=== PATIENT | female | born 1985 | race Caucasian/White ===

== ENCOUNTER → 2016-03-31 | Outpatient (CLI) | payer BC ==
--- OUTSIDE RECORDS SUMMARY | 2016-03-31 13:52 | XMS REPORT | Continuity of Care Document ---
Author Author Interface Organization Interface Address Unknown Phone Unavailable Problems Problem Status Onset Date Classification Date Reported Comments Source Medications Medication Details Route Status Patient Instructions Ordering Provider Order Date Source Allergies, Adverse Reactions, Alerts Substance Category Reaction Severity Reaction type Status Date Reported Comments Source Immunizations Immunization Date Given Site Status Last Updated Comments Source Results Order Name Results Value Reference Range Date Interpretation Comments Source Vital Signs Vital Sign Value Date Comments Source Encounters Location Location Details Encounter Type Encounter Number Reason For Visit Attending Provider ADM Date DC Date Status Source Procedures Procedure Code Date Perfomer Comments Source
--- NOTE | 2016-03-31 14:22 | Diagnostic Imaging Report ---
EXAMINATION: Three views of the right shoulder. INDICATION: Fall. FINDINGS: There is no fracture, dislocation or radiopaque foreign body. The glenohumeral and the acromioclavicular joints appear unremarkable. IMPRESSION: Unremarkable exam. Dictated by: Dictated on workstation # [id number]
== END ==
LOC: RAD 13:46
PROVIDERS: ATTEND Internal Medicine
DX: M25.511 Pain in right shoulder (principal)
CPT/HCPCS: 73030

== ENCOUNTER → 2016-04-13 | Outpatient (CLI) | payer BC ==
--- NOTE | 2016-04-13 10:45 | Diagnostic Imaging Report ---
PROCEDURE: MRI right joint upper extremity without contrast. TECHNIQUE: Multiplanar, multisequence non contrast-enhanced MRI of the right upper extremity was accomplished. INDICATION: Right shoulder pain. Fall. FINDINGS: There is no os acromiale or Hill-Sachs deformity. No significant marrow signal abnormality. The long head biceps tendon is within its groove. The subscapular tendon appears normal. There is a focal amount of small fluid collection within the subdeltoid subacromial bursa. There is a bursal side mild focal low grade partial tear involving the supraspinatus and adjacent infraspinatus tendon insertion. No high-grade tear or retracted tear. The acromioclavicular joint demonstrates no significant arthritic changes or osteophytes. The muscles around the shoulder demonstrate normal bulk and signal. The glenoid labrum appears grossly unremarkable. IMPRESSION: Low-grade focal bursal side partial tear involving the supraspinatus and infraspinatus tendon insertion. Dictated by: Dictated on workstation # [id number]
== END ==
LOC: RAD 09:35
PROVIDERS: ATTEND Nurse Practitioner Family
DX: M25.511 Pain in right shoulder (principal); M54.10 Radiculopathy, site unspecified
CPT/HCPCS: 73221

== ENCOUNTER 2016-05-04 19:17 | Emergency (ER) | payer BC ==
[~2016-05-04] VITALS: Ht 165.1 cm; Wt 63.5 kg
[2016-05-04 19:55] LABS: BASOPHILS % (AUTO) 1 % (0-10); EOSINOPHILS # (AUTO) 0.1 10^3/uL (0.0-0.3); EOSINOPHILS % (AUTO) 1 % (0-10); LYMPHOCYTES # (AUTO) 1.6 X 10^3 (1.0-4.0); LYMPHOCYTES % (AUTO) 23 % (12-44); MEAN CORPUSCULAR HEMOGLOBIN 31 PG (25-34); MEAN CORPUSCULAR HGB CONC 34 G/DL (32-36); MEAN CORPUSCULAR VOLUME 90 FL (80-99); MEAN PLATELET VOLUME 9.5 FL (7.4-10.4); MONOCYTES # (AUTO) 0.7 X 10^3 (0.0-1.0); MONOCYTES % (AUTO) 11 % (0-12); NEUTROPHILS # (AUTO) 4.3 X 10^3 (1.8-7.8); NEUTROPHILS % (AUTO) 64 % (42-75); PLATELET COUNT 232 10^3/uL (130-400); RED CELL DISTRIBUTION WIDTH 12.8 % (10.0-14.5); WHITE BLOOD COUNT 6.7 10^3/uL (4.3-11.0)
[2016-05-04 20:04] LABS: INR 0.9 (0.8-1.4); PROTHROMBIN TIME PATIENT 11.4 SEC (12.2-14.7)
[2016-05-04 20:20] LABS: ALANINE AMINOTRANSFERASE 25 U/L (0-55); ALBUMIN 4.5 G/DL (3.2-4.5); ANION GAP 13 MMOL/L (5-14); ASPARTATE AMINO TRANSFERASE 12 U/L (5-34); BILIRUBIN,TOTAL 0.4 MG/DL (0.1-1.0); BLOOD UREA NITROGEN 10 MG/DL (7-18); BUN/CREATININE RATIO 14; CALCIUM 9.8 MG/DL (8.5-10.1); CARBON DIOXIDE 25 MMOL/L (21-32); CHLORIDE 100 MMOL/L (98-107); GFR ESTIMATED > 60; GLUCOSE 84 MG/DL (70-105); MAGNESIUM 2.2 MG/DL (1.8-2.4); POTASSIUM 3.7 MMOL/L (3.6-5.0); SODIUM 138 MMOL/L (135-145); TOTAL PROTEIN 7.5 G/DL (6.4-8.2)
[2016-05-04 20:32] LABS: TROPONIN I < 0.30 NG/ML (<0.30)
--- NOTE | 2016-05-04 20:35 | Diagnostic Imaging Report ---
EXAM: CHEST 1 VIEW, AP/PA ONLY. INDICATION: Heart palpitations. Recent PICC line removed. COMPARISON: Chest radiograph 04/30/2016. FINDINGS: Normal heart size and pulmonary vascularity. No focal pulmonary opacity, pleural effusion, or pneumothorax. Left PICC tip in mid SVC, similar to the prior exam. Osseous structures are unremarkable. IMPRESSION: 1. No acute cardiopulmonary findings. 2. Left PICC with the tip in the mid SVC. Dictated by: Dictated on workstation # [id number]
[2016-05-04] MEDS ORDERED: NS 100 ML (IVPB) BAG IV ONE (20:45)
[2016-05-04] MEDS ORDERED: IOHEXOL 350 MG/ML 150 ML (OMNIPAQUE 350) VIAL IV ONE (20:45)
--- NOTE | 2016-05-04 21:08 | Diagnostic Imaging Report ---
PROCEDURE: CT angiography of the chest with contrast. TECHNIQUE: Multiple contiguous axial images were obtained through the chest after uneventful bolus administration of intravenous contrast. Reconstructed CTA MIP acquisitions were also performed. INDICATION: Heart palpitations. COMPARISON: Chest radiograph 05/04/2016. FINDINGS: No pulmonary artery filling defects. No aneurysm or dissection involving the thoracic aorta or its major branches in the chest. No mediastinal or hilar lymphadenopathy. No pleural or pericardial effusion. The lungs are clear. Bilateral breast prostheses. Osseous structures are unremarkable. The visualized upper abdominal contents are unremarkable. IMPRESSION: No pulmonary emboli. Negative CTA of the chest. Dictated by: Dictated on workstation # [id number]
--- NOTE | 2016-05-04 21:22 | ED Cardiac General ---
History of Present Illness General Chief Complaint: Cardiac/General Problems Stated Complaint: POST PICC PLACEMENT/DRAINAGE/HEART PALPITATIONS Nursing Triage Note: PT TO ED 7 W/ FAMILY FOR C/O PALPITATIONS ONSET TODAY WHILE AT REST. REPORTS RECENTLY HAD A PICC LINE PLACED ET HAS NOTED YELLOW DRAINAGE TO SITE BUT NO OTHER C/O SINCE. DENIES CP, SOA AT THIS TIME. Source: patient History of Present Illness Time seen by provider: 19:30 Initial Comments PT ARRIVES VIA POV FROM HOME STATES SHE HAS HAD PALPITATIONS SINCE 1629 TODAY--BEGAN WHILE SITTING, AND CONTINUES HEART JUST FEELS LIKE IT IS BEATING HARD/IS AWARE OF HEART BEAT. DOES NOT FEEL LIKE IT IS SKIPPING OR BEATING FAST. NO CHEST PAIN NO SHORTNESS OF BREATH NO DIZZINESS NO SWEATS NO SWELLING IN LEGS/ FEET OR PAIN IN CALVES NO HISTORY OF SIMILAR PT HAD PICC LINE PLACED IN LEFT UPPER ARM 1 WEEK AGO--HAS BEEN RECEIVING DAILY ROCEPHIN SINCE THEN, FOR LYME DISEASE SITE BLED THE FIRST NIGHT AND DRESSING CHANGED THE NEXT DAY. YESTERDAY HAD SOME CLEAR DRAINAGE FROM AREA, BUT NO REDNESS, SWELLING OR PAIN TO AREA HAS HAD SUBJECTIVE LOW GRADE FEVERS OFF AND ON X 1 WEEK, BUT NOT TODAY PCP: JW PARKER/DR. ALVARADO'S OFFICE Allergies and Home Medications Allergies Coded Allergies: No Known Drug Allergies (Unverified , 08/30/14) Review of Systems Constitutional: no symptoms reported EENTM: No Symptoms Reported Respiratory: No Symptoms Reported Cardiovascular: See HPIDenies Chest Pain, Denies Edema, Denies Irregular Heart Rate, Denies Lightheadedness, PalpitationsDenies Syncope Gastrointestinal: No Symptoms ReportedDenies Nausea, Denies Vomiting Genitourinary: No Symptoms Reported Musculoskeletal: no symptoms reported Skin: no symptoms reported Psychiatric/Neurological: No Symptoms Reported Endocrine: No Symptoms Reported Hematologic/Lymphatic: No Symptoms Reported Past Pawiesb-Frrtsg-Qjlptn Hx Patient Social History Alcohol Use: Denies Use Recreational Drug Use: No Smoking Status: Never a Smoker Recent Foreign Travel: No Contact w/Someone Who Travel: No Recent Infectious Disease Expo: No Recent Hopitalizations: No Immunizations Up To Date Date of Pneumonia Vaccine: Mar 01, 2013 Surgeries HX Surgeries: Yes (PICC LINE PLACEMENT) Respiratory Hx Respiratory Disorders: No Cardiovascular Hx Cardiac Disorders: No Neurological Hx Neurological Disorders: No Reproductive System Hx Reproductive Disorders: No Genitourinary Hx Genitourinary Disorders: No Gastrointestinal Hx Gastrointestinal Disorders: No Musculoskeletal Hx Musculoskeletal Disorders: No Endocrine Hx Endocrine Disorders: No HEENT HX ENT Disorders: No Cancer Hx Cancer: No Psychosocial Hx Psychiatric Problems: No Blood Transfusions Hx Blood Disorders: Yes (LYME DZ) Physical Exam Vital Signs Vital Sign - Last 12Hours 05/04/16 19:19 Temp 99.8 Pulse 98 Resp 20 B/P 148/99 Pulse Ox 100 O2 Delivery Room Air Capillary Refill : Less Than 3 Seconds General Appearance: No Apparent Distress WD/WN Anxious HEENT: PERRL/EOMI Neck: Full Range of Motion Normal Inspection Non Tender SuppleNo Carotid Bruit , No JVD Respiratory: Chest Non Tender Normal Breath Sounds No Accessory Muscle Use No Respiratory Distress Cardiovascular: Regular Rate, Rhythm No Edema No Gallop No JVD No Murmur Normal Peripheral Pulses Gastrointestinal: Normal Bowel Sounds No Organomegaly No Pulsatile Mass Non Tender Soft Extremity: Normal Capillary Refill Normal Inspection Normal Range of Motion Non Tender No Calf Tenderness No Pedal Edema Neurologic/Psychiatric: Alert Oriented x3 No 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 SCANT AMOUNT OF DRIED SEROUS DRAINAGE ON DRESSING, BUT DRESSING IS INTACT. ) Progress/Results/Core Measures Results/Orders Lab Results Laboratory Tests Test 05/04/16 19:46 Range/Units Activated Partial Thromboplast Time 27 24-35 SEC Alanine Aminotransferase (ALT/SGPT) 25 0-55 U/L Albumin 4.5 3.2-4.5 G/DL Alkaline Phosphatase 46 40-136 U/L Anion Gap 13 5-14 MMOL/L Aspartate Amino Transf (AST/SGOT) 12 5-34 U/L BUN/Creatinine Ratio 14 Basophils # (Auto) 0.0 0.0-0.1 10^3/uL Basophils (%) (Auto) 1 0-10 % Blood Urea Nitrogen 10 7-18 MG/DL Calcium Level 9.8 8.5-10.1 MG/DL Carbon Dioxide Level 25 21-32 MMOL/L Chloride Level 100 98-107 MMOL/L Creatinine 0.70 0.60-1.30 MG/DL Eosinophils # (Auto) 0.1 0.0-0.3 10^3/uL Eosinophils (%) (Auto) 1 0-10 % Estimat Glomerular Filtration Rate > 60 Free Thyroxine 0.87 0.70-1.48 NG/DL Glucose Level 84 70-105 MG/DL Hematocrit 39 35-52 % Hemoglobin 13.3 11.5-16.0 G/DL INR Comment 0.9 0.8-1.4 Lactic Acid Level 0.38 L 0.50-2.00 MMOL/L Lymphocytes # (Auto) 1.6 1.0-4.0 X 10^3 Lymphocytes (%) (Auto) 23 12-44 % Magnesium Level 2.2 1.8-2.4 MG/DL Mean Corpuscular Hemoglobin 31 25-34 PG Mean Corpuscular Hemoglobin Concent 34 32-36 G/DL Mean Corpuscular Volume 90 80-99 FL Mean Platelet Volume 9.5 7.4-10.4 FL Monocytes # (Auto) 0.7 0.0-1.0 X 10^3 Monocytes (%) (Auto) 11 0-12 % Neutrophils # (Auto) 4.3 1.8-7.8 X 10^3 Neutrophils (%) (Auto) 64 42-75 % Platelet Count 232 130-400 10^3/uL Potassium Level 3.7 3.6-5.0 MMOL/L Prothrombin Time 11.4 L 12.2-14.7 SEC Red Blood Count 4.30 L 4.35-5.85 10^6/uL Red Cell Distribution Width 12.8 10.0-14.5 % Serum Test, Qualitative NEGATIVE NEGATIVE Sodium Level 138 135-145 MMOL/L TSH Mammoth Testing 0.28 L 0.35-4.94 UIU/ML Total Bilirubin 0.4 0.1-1.0 MG/DL Total Protein 7.5 6.4-8.2 G/DL Troponin I < 0.30 <0.30 NG/ML White Blood Count 6.7 4.3-11.0 10^3/uL My Orders Orders-BANG RASMUSSEN DO Saline Lock/Iv-Start (05/04/16 19:28) Ekg Tracing (05/04/16 19:28) Monitor-Rhythm Ecg Trace Only (05/04/16 19:28) Cbc With Automated Diff (05/04/16 19:28) Comprehensive Metabolic Panel (05/04/16 19:28) Magnesium (05/04/16 19:28) Protime With Inr (05/04/16 19:28) Partial Thromboplastin Time (05/04/16 19:28) Thyroid Analyzer (05/04/16 19:28) Troponin I (05/04/16 19:28) Chest 1 View, Ap/Pa Only (05/04/16 19:28) Hcg,Qualitative Serum (05/04/16 19:29) Lactic Acid Analyzer (05/04/16 19:38) Blood Culture (05/04/16 19:38) Free T4 (Free Thyroxine) (05/04/16 19:46) Ct Angio Chest W (05/04/16 20:37) Iohexol Injection (Omnipaque 350 Mg/Ml 1 (05/04/16 20:45) Ns (Ivpb) (Sodium Chloride 0.9% Ivpb Bag (05/04/16 20:45) Medications Given in ED Current Medications Medications Dose Ordered Sig/Moi Route Start Time Stop Time Status Last Admin Dose Admin Iohexol 150 ml ONCE ONCE IV 05/04/16 20:45 05/04/16 21:21 DC 05/04/16 20:46 125 ML Sodium Chloride 100 ml ONCE ONCE IV 05/04/16 20:45 05/04/16 21:21 DC 05/04/16 20:46 80 ML Vital Signs/I&O Vital Sign - Last 12Hours 05/04/16 19:19 Temp 99.8 Pulse 98 Resp 20 B/P 148/99 Pulse Ox 100 O2 Delivery Room Air Blood Pressure Mean: 115 Progress Note : Progress Note UNEVENTFUL ER STAY. STILL HAS SENSATION OF HEART BEATING HARD, BUT NOT IRREGULAR OR FAST. PT REMAINED IN NSR THROUGHOUT ER STAY, WITHOUT ECTOPY. ECG Initial ECG Impression Time: 19:25 Initial ECG Rate: 91 Initial ECG Rhythm: Normal Sinus Initial ECG Impression: Normal Initial ECG Comparisson: No Previous ECG Available Diagnostic Imaging Comments CT ANGIO CHEST--NO P.E., NO ACUTE PROCESS--PER RADIOLOGIST REPORT @ 2121 Reviewed: Reviewed by Me Departure Impression Impression: Primary Impression: SUBJECTIVE PALPITATIONS Additional Impression: LOW TSH ON THYROID SUPPLEMENT Disposition: 01 HOME, SELF-CARE Condition: Stable Departure-Patient Inst. Referrals: VIJAY ALVARADO DO (PCP) Primary Care Physician MAXIMILIAN ALVARADO, DNP (Family) Primary Care Physician Patient Instructions: Palpitations (DC), Thyroid Stimulating Hormone Test Add. Discharge Instructions: HOME, REST CONTINUE YOUR MEDICATIONS PRESCRIBED FOLLOW UP WITH DR. ALVARADO'S OFFICE THIS WEEK FOR FURTHER CARE RETURN TO ER IF WORSE All discharge instructions reviewed with patient and/or family. Voiced understanding. BANG RASMUSSEN DO May 04, 2016 21:22
[2016-05-04 21:30] VITALS: BP 130/94
== END 2016-05-04 21:30 | disposition home or self-care (01) ==
LOC: EDUNIT# 19:17 → ER 19:19
DX: R00.2 Palpitations (principal); A69.20 Lyme disease, unspecified; R94.6 Abnormal results of thyroid function studies
CPT/HCPCS: 36415; 71010; 71275; 80053; 83605; 83735; 84439; 84443; 84484; 84703; 85025; 85610; 85730; 87040; 93005

== ENCOUNTER → 2016-06-02 | Outpatient (CLI) | payer BC ==
--- NOTE | 2016-06-02 13:28 | Diagnostic Imaging Report ---
PROCEDURE: MR imaging cervical spine without contrast. TECHNIQUE: Multiplanar, multisequence MR imaging of the cervical spine was performed without contrast. INDICATION: Neck pain, right arm pain. There are no previous studies available for comparison. FINDINGS: The reconstructed parasagittal images show slight reversal of the normal lordosis of the cervical spine. This may be secondary to muscle spasm and/or positioning. The intervertebral spaces are fairly well maintained although there is desiccation of the disc at every level. Furthermore at the C5-C6 level, there is a broad-based disc bulge slightly eccentric to the left. The disc indents the ventral aspect of the thecal sac and narrows the AP diameter to approximately 10.3 mm. There does not appear to be any significant neuroforaminal narrowing at this level. The thecal sac is relatively generous and there is no evidence for spinal stenosis or nerve root encroachment at any other level of the cervical spine. There is no abnormal signal arising from the cord or the vertebral bodies to indicate an acute abnormality. There is no sign of a paraspinal mass. The expected carotid and vertebral flow voids are evident bilaterally. IMPRESSION: 1. There is a disc bulge eccentric to the left at C5-C6. There does not appear to be any significant central stenosis at this level and there is no narrowing of the neuroforamen at this level. 2. The remainder of the cervical spine is unremarkable for spinal stenosis or nerve root encroachment. 3. There is no sign of an acute bony abnormality or of a cord lesion. Dictated by: Dictated on workstation # [id number]
== END ==
LOC: RAD 11:24
PROVIDERS: ATTEND Orthopaedic Surgery
DX: M54.12 Radiculopathy, cervical region (principal); M25.511 Pain in right shoulder
CPT/HCPCS: 72141

== ENCOUNTER 2016-06-12 13:08 | Outpatient (RCR) | payer BC ==
--- NOTE | 2016-04-30 16:06 | Diagnostic Imaging Report ---
EXAMINATION: Portable upright radiograph of the chest. INDICATION: PICC line placement. FINDINGS: Left PICC line is placed with the tip at the distal SVC level. The lungs are clear. The heart size is normal. No effusion or pneumothorax. The mediastinum and soha appear unremarkable. IMPRESSION: Left PICC line placed with the tip at the distal SVC level. Dictated by: Dictated on workstation # [id number]
[2016-04-30 16:40] VITALS: BP 131/100
--- NOTE | 2016-05-19 15:34 | Diagnostic Imaging Report ---
Portable upright radiograph of the chest. INDICATION: PICC line placement. FINDINGS: Left PICC line is placed with the tip at the cavoatrial junction. The lungs are clear. The heart size is normal. No effusion or pneumothorax The mediastinum and soha appear unremarkable. IMPRESSION: Unremarkable exam. Dictated by: Dictated on workstation # [id number]
[2016-06-02 10:35] VITALS: BP 124/84
[~2016-06-12] VITALS: Ht 165.1 cm; Wt 49.9 kg
[~2016-06-12 13:08] MED LIST: cefTRIAXone 1 GM/NS 50 ML IVPB IV ONE
[2016-06-12 13:43] VITALS: BP 124/86
== END 2016-07-29 | disposition home or self-care (01) ==
LOC: SDC 13:08
PROVIDERS: ATTEND Internal Medicine
DX: R78.81 Bacteremia (principal)
CPT/HCPCS: 36569; 71010; 76937; 96365; 96366; 99211

== ENCOUNTER 2017-05-06 18:48 | Inpatient (IN) | payer BC ==
[2017-05-06] VITALS (12 sets, daily range): BP systolic 117–149; BP diastolic 72–100
[~2017-05-06] VITALS: Ht 165.1 cm; Wt 79.5 kg
[2017-05-06] MEDS ORDERED: NS IV 1000 ML 1,496.85 ML IV PRN (19:00)
[2017-05-06] MEDS ORDERED: MELATONIN 3 MG TABLET PO PRN (19:00)
[2017-05-06] MEDS ORDERED: ANTACID SUSP 30 ML UDC (MYLANTA) PO PRN (19:00)
[2017-05-06] MEDS ORDERED: MILK OF MAGNESIA 400 MG/5 ML 30 ML UDC PO PRN (19:00)
[2017-05-06] MEDS ORDERED: fentaNYL INJECTION 100 MCG/2 ML AMP IVP PRN ×2 (19:00→20:00)
[2017-05-06] MEDS ORDERED: BENZONATATE 100 MG (TESSALON) CAPSULE PO PRN (19:00)
[2017-05-06] MEDS ORDERED: ONDANSETRON 4 MG/2 ML (SDV) Z0FRAN IV PRN ×2 (19:00→20:00)
--- OUTSIDE RECORDS SUMMARY | 2017-05-06 19:02 | XMS REPORT | Continuity of Care Document ---
Author Author [employer] Organization [facility] Address Unknown Phone Unavailable Care Team Providers Care Ride Attendant Name Role Phone [employer] Unavailable Unavailable Problems Medications Allergies, Adverse Reactions, Alerts Immunizations Results Vital Signs Encounters Procedures Plan of Care Social History Assessment and Plan Family History Advance Directives Functional Status
--- OUTSIDE RECORDS SUMMARY | 2017-05-06 19:02 | XMS REPORT | Clinical Summary ---
Author Author [facility] Organization [facility] Address Unknown Phone Unavailable Care Team Providers Care Lay Out Inspector Name Role Phone Bashir Capellan PA-C Unavailable Unavailable Chino Lopez RD Unavailable Thania Mclean MD Unavailable Source Comments Some departments are not documenting in the electronic medical record. If you do not see the information that you expected, contact Release of Information in the Health Information Management department at [phone] for further assistance in locating additional records.[facility] Allergies No Known Allergies Current Medications Prescription Sig. Disp. Refills Start End Date Status Date progesterone, Take 100 mg by mouth Active micronized(+) daily. (PROMETRIUM) 100 mg capsule PREGNENOLONE MISC Take 50 mg by mouth three Active times daily. Prasterone (DHEA) (DHEA) Take 2 Caps by mouth Active 50 mg cap daily. Copper Gluconate 2 mg cap Take 1 Cap by mouth Active daily. Zinc 50 mg tab Take 1 Tab by mouth Active daily. S-Adenosylmethionine Take 2 Tabs by mouth Active (YANETH-E) 400 mg tab daily. GLUTATHIONE PO Take 250 mg by mouth. 10 Active caps/day CHROMIUM PO Take 1 Cap by mouth Active daily. VIT #91/FE Take 1 Cap by mouth Active FUM/FA/DHA ( + daily. DHA PO) vitamins, B complex tab Take 1 Tab by mouth Active daily. ferrous sulfate 325 mg Take 325 mg by mouth Active (65 mg iron) tablet daily. Cholecalciferol (Vitamin Take 1 Cap by mouth twice Active D3) (VITAMIN D-3) 2,000 daily. unit cap Biotin 10,000 mcg cap Take 1 Cap by mouth Active daily. THYROID (BULK) MISC Take 1 Tab by mouth Active daily. Nonporcine Thyroid 38/9mcg Iodine (Kelp) tab Take 2 Tabs by mouth Active daily. Sea-Iodine 1,000 mcg RESVERATROL PO Take 500 mg by mouth Active three times daily. Digestive Enzymes (ENZYME Take 2 Caps by mouth Active DIGEST) cap three times daily. Enhanced Super Digestive Enzymes B INFANTIS/B ANI/B DRAKE/B Take 2 Tabs by mouth Active BIFID (PROBIOTIC 4X PO) daily. DIINDOLYLMETHANE (BULK) Take 150 mg by mouth Active MISC daily. Fish Oil-[place]-3 Fatty Take 1 Cap by mouth Active Acids (FISH OIL) daily. 360-1,200 mg cpDR COLOSTRUM, BOVINE PO Take 3 g by mouth twice Active daily. Colostrum Plus 1 scoop BID ASCORBATE CALCIUM Take 5 g by mouth three Active (VITAMIN C PO) times daily. Vitamin C Crystals 1 tsp TID nystatin 500,000 unit Take 500,000 Units by Active tablet mouth daily. estradiol(+) Apply 1 Patch to top of Active (VIVELLE-DOT; ESCLIM; skin as directed twice JAZMINE; ESTRADERM; weekly. VIVELLE) 0.1 mg/24 hr patch QUEtiapine (SEROQUEL) 100 Take 100 mg by mouth Active mg tablet three times daily. amphetamine-dextroampheta Take 20 mg by mouth as Active mine XR (ADDERALL XR) 20 Needed mg capsule Selenomethionine 200 mcg Take 1 Tab by mouth twice Active tab daily. other medication Take 1 Dose by mouth Active daily. Serenity other medication Take 1 Dose by mouth four Active times daily. CleanseMore - Magnesium 230 mg plus PROPRIETARY BLEND(CAPE ALOE VERA, RHUBARB ROOT, SLIPPERY ELM BARK, MARSHMALLOW ROOT, TRIPHALA) other medication Take 1 Dose by mouth Active twice daily. Avipaxin - Alpha-Size 50P (Alpha-Glyceryl Phosphoryl Choline), Vocrcp-X-itybwujct hydrochloride, Huperzia augustine herb extract (standardized to 1% Huperzine A) FOLIC ACID PO Take 5 mg by mouth twice Active daily. 5MTHF other medication Take 2 Doses by mouth Active twice daily. Mitochondrial Energy Optimizer other medication Take 2 Doses by mouth Active three times daily. Forskohlii other medication Take 2 Doses by mouth Active twice daily. Immuno Mod-A [employer]s for Health other medication Take 1 Dose by mouth Active twice daily. Viviscal bi-est 50/50 0.5 mg-DHEA Take 0.5 Troches by mouth Active 2.5 mg-pregnenolone 6 daily. Bi-est 5 mg only mg-progesterone 50 mg-testosterone 0.5 mg chrissy other medication Take 1 Dose by mouth Active twice daily. IntestiNew L-glutamine (free form) 835mg N-acetyl D-glucosamine 35mg Gamma oryzanol 20mg Proprietary herbal blend 10mg -cranesbill root (geranium maculatum) -michael root (zingiber officinale) -marigold flower (calendula officinalis) -marshmallow root (althaea officinalis) Testosterone (TESTOPEL) Insert as directed. Active 75 mg pllt Testosterone Pellet other medication Take 2 Doses by mouth Active twice daily. ViraCon - Vital Nutrients other medication Take 2 Doses by mouth Active three times daily. Monolaurin 600mg, Inosine ...7.5mg other medication Take 1 Dose by mouth Active three times daily. Biocidin 400 mg other medication Take 1 Dose by mouth four Active times daily. Silver Hydrosol 1 [id number]=[id number]/QID Melatonin 5 mg cap Take by mouth. Active Phentermine 37.5 mg cap Take by mouth. Active metFORMIN (GLUCOPHAGE) Take 500 mg by mouth Active 500 mg tablet twice daily with meals. clonazePAM (KLONOPIN) 1 Take 1 mg by mouth twice Active mg tablet daily. spironolactone Take 50 mg by mouth Active (ALDACTONE) 50 mg tablet daily. pregabalin (LYRICA) 50 mg Take 50 mg by mouth three Active capsule times daily. Active Problems Problem Noted Date Micromastia 07/10/2015 Lyme disease 05/22/2014 Overview: 06/12 positive titre after a year of fatigue and joint, muscle pain. 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 Insomnia 05/22/2014 Depression 05/22/2014 Hx of tobacco use, presenting hazards to health 05/22/2014 Amenorrhea 05/22/2014 Overview: last menses Oct 2013 Hypothyroid 05/22/2014 Chronic pain 05/22/2014 Social History Tobacco Use Types Packs/Day Years Used Date Former Smoker Sex Assigned at Date Recorded Not on file Last Filed Vital Signs Vital Sign Reading Time Taken Blood Pressure 117/81 07/10/2015 10:15 AM CDT Pulse 118 07/10/2015 10:15 AM CDT Temperature - - Respiratory Rate 18 07/10/2015 10:15 AM CDT Oxygen Saturation - - Inhaled Oxygen - - Concentration Weight 52 kg (114 lb 9.6 oz) 07/10/2015 10:15 AM CDT Height 165.1 cm (5' 5") 07/10/2015 10:15 AM CDT Body Mass Index 19.07 07/10/2015 10:15 AM CDT Plan of Treatment Health Maintenance Due Date Last Done Comments PHYSICAL (COMPREHENSIVE) 1992 EXAM PERTUSSIS VACCINE 1996 HIV SCREENING 2000 TETANUS VACCINE 2002 CERVICAL CANCER SCREENING 2015 INFLUENZA VACCINE 11/29/2017 Results Not on filefrom Last 3 Months
--- OUTSIDE RECORDS SUMMARY | 2017-05-06 19:03 | XMS REPORT | Continuity of Care Document ---
Author Author [facility] Organization [facility] Address Unknown Phone Unavailable Allergies Active Description Code Type Severity Reaction Onset Reported/Identified Relationship to Patient Clinical Status Yes No Known Drug Allergies [id number] Drug Allergy Unknown N/A 08/30/2014 Medications There is no data. Problems Date Dx Coded Attending Type Code Diagnosis Diagnosed By 09/12/2014 MAXIMILIAN ALVARADO ELECTROMEDICAL EQUIPMENT REPAIRER Ot 790.7 10/18/2014 MAXIMILIAN ALVARADO ELECTROMEDICAL EQUIPMENT REPAIRER Ot 790.7 10/31/2014 VIJAY ALVARADO DO Ot 114.9 10/31/2014 VIJAY ALVARADO DO Ot 789.00 10/31/2014 VIJAY ALVARADO DO Ot 793.19 11/08/2014 VIJAY ALVARADO DO Ot 786.09 11/08/2014 VIJAY ALVARADO DO Ot 786.2 11/15/2014 VIJAY ALVARADO DO Ot 114.9 11/15/2014 VIJAY ALVARADO DO Ot 789.00 11/15/2014 VIJAY ALVARADO DO Ot 793.19 11/28/2014 MAXIMILIAN ALVARADOP Ot 790.7 BACTEREMIA 03/08/2015 VIJAY ALVARADO DO Ot 786.09 03/08/2015 VIJAY ALVARADO DO Ot 786.2 03/08/2015 VIJAY ALVARADO DO Ot 114.9 03/08/2015 VIJAY ALVARADO DO Ot 789.00 03/08/2015 VIJAY ALVARADO DO Ot 793.19 03/20/2015 MAXIMILIAN ALVARADO ELECTROMEDICAL EQUIPMENT REPAIRER Ot R91.1 04/18/2015 MAXIMILIAN ALVARADO ELECTROMEDICAL EQUIPMENT REPAIRER Ot A21.9 04/18/2015 MAXIMILIAN ALVARADO ELECTROMEDICAL EQUIPMENT REPAIRER Ot A21.9 04/19/2015 MAXIMILIAN ALVARADO ELECTROMEDICAL EQUIPMENT REPAIRER Ot A21.9 04/20/2015 JENNY, MAXIMILIAN L ELECTROMEDICAL EQUIPMENT REPAIRER Ot A21.9 04/21/2015 JENNY, MAXIMILIAN L ELECTROMEDICAL EQUIPMENT REPAIRER Ot A21.9 04/21/2015 JENNY, MAXIMILIAN L ELECTROMEDICAL EQUIPMENT REPAIRER Ot A21.9 04/22/2015 JENNY, MAXIMILIAN L ELECTROMEDICAL EQUIPMENT REPAIRER Ot A21.9 04/24/2015 JENNY, MAXIMILIAN L ELECTROMEDICAL EQUIPMENT REPAIRER Ot A21.9 04/25/2015 JENNY, MAXIMILIAN L ELECTROMEDICAL EQUIPMENT REPAIRER Ot A21.9 04/26/2015 JENNY, MAXIMILIAN L ELECTROMEDICAL EQUIPMENT REPAIRER Ot A21.9 04/27/2015 JENNY, MAXIMILIAN L ELECTROMEDICAL EQUIPMENT REPAIRER Ot A21.9 04/27/2015 JENNY MAXIMILIAN L ELECTROMEDICAL EQUIPMENT REPAIRER Ot A21.9 04/28/2015 JENNY MAXIMILIAN L ELECTROMEDICAL EQUIPMENT REPAIRER Ot A21.9 04/29/2015 JENNY MAXIMILIAN L ELECTROMEDICAL EQUIPMENT REPAIRER Ot A21.9 05/28/2015 JENNY MAXIMILIAN L ELECTROMEDICAL EQUIPMENT REPAIRER Ot A21.9 06/18/2015 JENNY MAXIMILIAN L ELECTROMEDICAL EQUIPMENT REPAIRER Ot A69.20 LYME DISEASE, UNSPECIFIED 06/18/2015 JNENY MAXIMILIAN L ELECTROMEDICAL EQUIPMENT REPAIRER Ot A69.20 LYME DISEASE, UNSPECIFIED 06/19/2015 JENNY MAXIMILIAN L ELECTROMEDICAL EQUIPMENT REPAIRER Ot A69.20 LYME DISEASE, UNSPECIFIED 06/19/2015 JENNY MAXIMILIAN L ELECTROMEDICAL EQUIPMENT REPAIRER Ot A69.20 LYME DISEASE, UNSPECIFIED 06/20/2015 JENNY MAXIMILIAN L ELECTROMEDICAL EQUIPMENT REPAIRER Ot A69.20 LYME DISEASE, UNSPECIFIED 06/20/2015 JENNY MAXIMILIAN L ELECTROMEDICAL EQUIPMENT REPAIRER Ot A69.20 LYME DISEASE, UNSPECIFIED 06/21/2015 JENNY MAXIMILIAN L ELECTROMEDICAL EQUIPMENT REPAIRER Ot A69.20 LYME DISEASE, UNSPECIFIED 06/21/2015 JENNY MAXIMILIAN L ELECTROMEDICAL EQUIPMENT REPAIRER Ot A69.20 LYME DISEASE, UNSPECIFIED 06/21/2015 JENNY MAXIMILIAN L ELECTROMEDICAL EQUIPMENT REPAIRER Ot A69.20 LYME DISEASE, UNSPECIFIED 06/21/2015 JENNY MAXIMILIAN L ELECTROMEDICAL EQUIPMENT REPAIRER Ot A69.20 LYME DISEASE, UNSPECIFIED 07/03/2015 MAXIMILIAN ALVARADO ELECTROMEDICAL EQUIPMENT REPAIRER Ot H53.9 UNSPECIFIED VISUAL DISTURBANCE 07/03/2015 MAXIMILIAN ALVARADO ELECTROMEDICAL EQUIPMENT REPAIRER Ot R51 HEADACHE 07/15/2015 MAXIMILIAN ALVARADO ELECTROMEDICAL EQUIPMENT REPAIRER Ot A21.9 TULAREMIA, UNSPECIFIED 07/25/2015 MAXIMILIAN ALVARADO ELECTROMEDICAL EQUIPMENT REPAIRER Ot A69.20 LYME DISEASE, UNSPECIFIED 09/15/2015 MAXIMILIAN ALVARADO ELECTROMEDICAL EQUIPMENT REPAIRER Ot A69.20 LYME DISEASE, UNSPECIFIED 09/20/2015 MAXIMILIAN ALVARADO ELECTROMEDICAL EQUIPMENT REPAIRER Ot A02.9 SALMONELLA INFECTION, UNSPECIFIED 10/28/2015 MAXIMILIAN ALVARADO ELECTROMEDICAL EQUIPMENT REPAIRER Ot A02.9 SALMONELLA INFECTION, UNSPECIFIED 11/24/2015 MAXIMILIAN ALVARADO ELECTROMEDICAL EQUIPMENT REPAIRER Ot A02.9 SALMONELLA INFECTION, UNSPECIFIED 11/25/2015 MAXIMILIAN ALVARADO ELECTROMEDICAL EQUIPMENT REPAIRER Ot A02.9 SALMONELLA INFECTION, UNSPECIFIED 11/26/2015 MAXIMILIAN ALVARADO ELECTROMEDICAL EQUIPMENT REPAIRER Ot A02.9 SALMONELLA INFECTION, UNSPECIFIED 03/31/2016 VIJAY ALVARADO DO Ot 786.09 RESPIRATORY ABNORM NEC 03/31/2016 VIJAY ALVARADO DO Ot 786.2 COUGH 03/31/2016 VIJAY ALVARADO DO Ot 114.9 COCCIDIOIDOMYCOSIS NOS 03/31/2016 VIJAY ALVARADO DO Ot 789.00 ABDOMINAL PAIN, UNSPECIFIED SITE 03/31/2016 VIJAY ALVARADO DO Ot 793.19 OTHER NONSPECIFIC ABNORMAL FINDING OF SHELBI 03/31/2016 VIJAY ALVARADO DO Ot Z53.9 PROCEDURE AND TREATMENT NOT CARRIED OUT, 03/31/2016 MAXIMILIAN ALVARADO ELECTROMEDICAL EQUIPMENT REPAIRER Ot R91.1 SOLITARY PULMONARY NODULE 03/31/2016 MAXIMILIAN ALVARADO ELECTROMEDICAL EQUIPMENT REPAIRER Ot H53.9 UNSPECIFIED VISUAL DISTURBANCE 03/31/2016 MAXIMILIAN ALVARADO ELECTROMEDICAL EQUIPMENT REPAIRER Ot R51 HEADACHE 03/31/2016 MAXIMILIAN ALVARADO ELECTROMEDICAL EQUIPMENT REPAIRER Ot A21.9 TULAREMIA, UNSPECIFIED 03/31/2016 MAXIMILIAN ALVARADO ELECTROMEDICAL EQUIPMENT REPAIRER Ot A69.20 LYME DISEASE, UNSPECIFIED 03/31/2016 MAXIMILIAN ALVARADO ELECTROMEDICAL EQUIPMENT REPAIRER Ot A02.9 SALMONELLA INFECTION, UNSPECIFIED 03/31/2016 JENNYMAXIMILIAN ELECTROMEDICAL EQUIPMENT REPAIRER Ot A02.9 SALMONELLA INFECTION, UNSPECIFIED 04/01/2016 VIJAY ALVARADO DO Ot M25.511 PAIN IN RIGHT SHOULDER 04/14/2016 JENNYMAXIMILIAN ELECTROMEDICAL EQUIPMENT REPAIRER Ot M25.511 PAIN IN RIGHT SHOULDER 04/14/2016 JENNY MAXIMILIAN Anjali CATESP Ot M54.10 RADICULOPATHY, SITE UNSPECIFIED 04/15/2016 VIJAY ALVARADO DO Ot M25.511 PAIN IN RIGHT SHOULDER 04/30/2016 JENNY MAXIMILIAN Anjali ELECTROMEDICAL EQUIPMENT REPAIRER Ot M25.511 PAIN IN RIGHT SHOULDER 04/30/2016 MAXIMILIAN ALVARADOP Ot M54.10 RADICULOPATHY, SITE UNSPECIFIED 05/04/2016 BANG RASMUSSEN DO Ot A69.20 LYME DISEASE, UNSPECIFIED 05/04/2016 BANG RASMUSSEN DO Ot R00.2 PALPITATIONS 05/04/2016 BANG RASMUSSEN DO Ot R94.6 ABNORMAL RESULTS OF THYROID FUNCTION MARVIN 06/02/2016 VIJAY ALVARADO DO Ot R78.81 BACTEREMIA 06/03/2016 KEITH QUINTEROS DO Ot M25.511 PAIN IN RIGHT SHOULDER 06/03/2016 KEITH QUINTEROS DO Ot M54.12 RADICULOPATHY, CERVICAL REGION 06/12/2016 VIJAY ALVARADO DO Ot R78.81 BACTEREMIA 06/15/2016 VIJAY ALVARADO DO Ot R78.81 BACTEREMIA 06/19/2016 KEITH QUINTEROS DO Ot M25.511 PAIN IN RIGHT SHOULDER 06/19/2016 KEITH QUINTEROS DO Ot M54.12 RADICULOPATHY, CERVICAL REGION 07/29/2016 VIJAY ALVARADO DO Ot R78.81 BACTEREMIA 07/30/2016 VIJAY ALVARADO DO Ot R78.81 BACTEREMIA Procedures There is no data. Results Test Result Range Complete blood count (CBC) with automated white blood cell (WBC) differential - 05/04/16 19:46 Blood leukocytes automated count (number/volume) 6.7 10*3/uL 4.3-11.0 Blood erythrocytes automated count (number/volume) 4.30 10*6/uL 4.35-5.85 Venous blood hemoglobin measurement (mass/volume) 13.3 g/dL 11.5-16.0 Blood hematocrit (volume fraction) 39 % 35-52 Automated erythrocyte mean corpuscular volume 90 [foz_us] 80-99 Automated erythrocyte mean corpuscular hemoglobin (mass per erythrocyte) 31 pg 25-34 Automated erythrocyte mean corpuscular hemoglobin concentration measurement ( mass/volume) 34 g/dL 32-36 Automated erythrocyte distribution width ratio 12.8 % 10.0-14.5 Automated blood platelet count (count/volume) 232 10*3/uL 130-400 Automated blood platelet mean volume measurement 9.5 [foz_us] 7.4-10.4 Automated blood neutrophils/100 leukocytes 64 % 42-75 Automated blood lymphocytes/100 leukocytes 23 % 12-44 Blood monocytes/100 leukocytes 11 % 0-12 Automated blood eosinophils/100 leukocytes 1 % 0-10 Automated blood basophils/100 leukocytes 1 % 0-10 Blood neutrophils automated count (number/volume) 4.3 10*3 1.8-7.8 Blood lymphocytes automated count (number/volume) 1.6 10*3 1.0-4.0 Blood monocytes automated count (number/volume) 0.7 10*3 0.0-1.0 Automated eosinophil count 0.1 10*3/uL 0.0-0.3 Automated blood basophil count (count/volume) 0.0 10*3/uL 0.0-0.1 Blood lactic acid measurement (moles/volume) - 05/04/16 19:46 Blood lactic acid measurement (moles/volume) 0.38 mmol/L 0.50-2.00 Serum or plasma choriogonadotropin ( test) detection - 05/04/16 19:46 Serum or plasma choriogonadotropin ( test) detection NEGATIVE NEGATIVE PT panel in platelet poor plasma by coagulation assay - 05/04/16 19:46 Prothrombin time (PT) in platelet poor plasma by coagulation assay 11.4 s 12.2-14.7 INR in platelet poor plasma or blood by coagulation assay 0.9 0.8-1.4 Activated partial thromboplastin time (aPTT) in platelet poor plasma bycoagulation assay - 05/04/16 19:46 Activated partial thromboplastin time (aPTT) in platelet poor plasma bycoagulation assay 27 s 24-35 Comprehensive metabolic panel - 05/04/16 19:46 Serum or plasma sodium measurement (moles/volume) 138 mmol/L 135-145 Serum or plasma potassium measurement (moles/volume) 3.7 mmol/L 3.6-5.0 Serum or plasma chloride measurement (moles/volume) 100 mmol/L 98-107 Carbon dioxide 25 mmol/L 21-32 Serum or plasma anion gap determination (moles/volume) 13 mmol/L 5-14 Serum or plasma urea nitrogen measurement (mass/volume) 10 mg/dL 7-18 Serum or plasma creatinine measurement (mass/volume) 0.70 mg/dL 0.60-1.30 Serum or plasma urea nitrogen/creatinine mass ratio 14 NRG Serum or plasma creatinine measurement with calculation of estimated glomerular filtration rate > NRG Serum or plasma glucose measurement (mass/volume) 84 mg/dL 70-105 Serum or plasma calcium measurement (mass/volume) 9.8 mg/dL 8.5-10.1 Serum or plasma total bilirubin measurement (mass/volume) 0.4 mg/dL 0.1-1.0 Serum or plasma alkaline phosphatase measurement (enzymatic activity/volume) 46 U/L 40-136 Serum or plasma aspartate aminotransferase measurement (enzymatic activity/ volume) 12 U/L 5-34 Serum or plasma alanine aminotransferase measurement (enzymatic activity/volume ) 25 U/L 0-55 Serum or plasma protein measurement (mass/volume) 7.5 g/dL 6.4-8.2 Serum or plasma albumin measurement (mass/volume) 4.5 g/dL 3.2-4.5 Magnesium - 05/04/16 19:46 Magnesium 2.2 mg/dL 1.8-2.4 Serum or plasma troponin i.cardiac measurement (mass/volume) - 05/04/16 19:46 Serum or plasma troponin i.cardiac measurement (mass/volume) < ng/ mL <0.30 Serum or plasma thyroxine (T4) free measurement (mass/volume) - 05/04/16 19:46 Serum or plasma thyroxine (T4) free measurement (mass/volume) 0.87 ng/dL 0.70-1.48 Serum or plasma thyrotropin measurement by detection limit <=0.05 miu/l (units/ volume) - 05/04/16 19:46 Serum or plasma thyrotropin measurement by detection limit <=0.05 miu/l (units/ volume) 0.28 u[iU]/mL 0.35-4.94 Bacterial blood culture - 05/04/16 19:46 Bacterial blood culture NG NRG Bacterial blood culture - 05/04/16 20:07 Bacterial blood culture NG NRG Encounters ACCT No. Visit Date/Time Discharge Status Pt. Type Provider Facility Loc./Unit Complaint [id number] 12/16/2016 15:50:00 12/16/2016 23:59:59 CLS Preadmit MAXIMILIAN ALVARADO [facility] RAD ABD PAIN [id number] 07/30/2016 00:16:00 07/30/2016 23:59:59 CLS Preadmit VIJAY ALVARADO DO [facility] SDC BACTEREMIA [id number] 06/12/2016 13:08:00 07/29/2016 00:01:00 DIS Outpatient VIJAY ALVARADO DO [facility] SDC BACTEREMIA [id number] 06/02/2016 11:24:00 06/02/2016 23:59:59 CLS Outpatient KEITH QUINTEROS DO [facility] RAD RIGHT SHOULDER PAIN, RIGHT CERVICAL RADICULOPATHY [id number] 05/04/2016 19:19:00 05/04/2016 21:30:00 DIS Emergency BANG RASMUSSEN DO [facility] ER POST PICC PLACEMENT/ DRAINAGE/HEART PALPITATIONS [id number] 04/13/2016 09:35:00 04/13/2016 23:59:59 CLS Outpatient MAXIMILIAN ALVARADO [facility] RAD RIGHT SHOULDER PAIN W/RADICUOPATHY [id number] 03/31/2016 13:46:00 03/31/2016 23:59:59 CLS Outpatient VIJAY ALVARADO DO [facility] RAD R SHOULDER PAIN [id number] 11/26/2015 00:08:00 11/26/2015 23:59:59 CLS Preadmit MAXIMILIAN ALVARADO [facility] 4TH RCR [id number] 11/25/2015 00:09:00 11/25/2015 23:59:59 CLS Preadmit MAXIMILIAN ALVARADO ELECTROMEDICAL EQUIPMENT REPAIRER [facility] LAB POS E/A SALMONELLA [id number] 09/02/2015 17:50:00 11/25/2015 00:01:00 DIS Outpatient ALVARADO MAXIMILIAN L ELECTROMEDICAL EQUIPMENT REPAIRER [facility] 4TH RCR [id number] 08/30/2015 21:00:00 11/24/2015 00:01:00 DIS Outpatient ALVARADO, MAXIMILIAN L ELECTROMEDICAL EQUIPMENT REPAIRER [facility] LAB POS E/A SALMONELLA [id number] 09/16/2015 00:09:00 09/16/2015 23:59:59 CLS Preadmit ALVARADOCASTILLO GUERREROIA L ELECTROMEDICAL EQUIPMENT REPAIRER [facility] BACTEREMIA,ACUTE B BURGDORFERI [id number] 06/21/2015 06:12:00 09/15/2015 00:01:00 DIS Outpatient ALVARADOCASTILLO GUERREROIA L ELECTROMEDICAL EQUIPMENT REPAIRER [facility] BACTEREMIA,ACUTE B BURGDORFERI [id number] 07/16/2015 00:08:00 07/16/2015 23:59:59 CLS Preadmit ALVARADO, MAXIMILIAN L ELECTROMEDICAL EQUIPMENT REPAIRER [facility] F. TULARENSIS [id number] 04/29/2015 08:56:00 07/15/2015 00:01:00 DIS Outpatient ALVARADOCASTILLO GUERREROIA L ELECTROMEDICAL EQUIPMENT REPAIRER [facility] F. TULARENSIS [id number] 06/20/2015 13:32:00 06/20/2015 23:59:59 CLS Outpatient ALVARADOCASTILLO GUERREROIA L ELECTROMEDICAL EQUIPMENT REPAIRER [facility] RAD SEVERE HEADACHES, VISUAL CHANGES [id number] 04/16/2015 21:56:00 04/16/2015 23:59:59 CLS Outpatient ALVARADOVIJAY GUERRERO DO [facility] LAB NODULES BI [id number] 03/08/2015 13:14:00 03/08/2015 23:59:59 CLS Outpatient ALVARADOCASTILLO GUERREROIA L ELECTROMEDICAL EQUIPMENT REPAIRER [facility] RAD NODULES BILATERALLY,HX PNEUMONIA [id number] 08/31/2014 08:04:00 11/28/2014 00:01:00 DIS [facility] [id number] 10/27/2014 09:48:00 10/27/2014 23:59:59 CLS Outpatient VIJAY ALVARADO DO [facility] RAD COCCOIDOSIS, ABD PAIN , ABD AIR FLUID WAVES [id number] 10/26/2014 17:23:00 10/26/2014 23:59:59 CLS Outpatient VIJAY ALVARADO DO [facility] RAD COUGH,DYSPNEA
[2017-05-06] MEDS ORDERED: ACETAMINOPHEN 325 MG TABLET/CAPLET (TYLENOL) PO PRN (19:15)
[2017-05-06 19:28] LABS: BASOPHILS % (AUTO) 1 % (0-10); EOSINOPHILS % (AUTO) 1 % (0-10); HEMATOCRIT 37 % (35-52); HEMOGLOBIN 12.6 G/DL (11.5-16.0); LYMPHOCYTES # (AUTO) 0.2 X 10^3 (1.0-4.0); LYMPHOCYTES % (AUTO) 11 % (12-44); MEAN CORPUSCULAR HEMOGLOBIN 31 PG (25-34); MEAN CORPUSCULAR HGB CONC 34 G/DL (32-36); MEAN CORPUSCULAR VOLUME 90 FL (80-99); MEAN PLATELET VOLUME 9.3 FL (7.4-10.4); MONOCYTES % (AUTO) 2 % (0-12); NEUTROPHILS # (AUTO) 1.6 X 10^3 (1.8-7.8); NEUTROPHILS % (AUTO) 86 % (42-75); PLATELET COUNT 150 10^3/uL (130-400); RED BLOOD COUNT 4.06 10^6/uL (4.35-5.85); RED CELL DISTRIBUTION WIDTH 13.5 % (10.0-14.5); WHITE BLOOD COUNT 1.9 10^3/uL (4.3-11.0)
[2017-05-06 19:42] LABS: ALANINE AMINOTRANSFERASE 53 U/L (0-55); ALBUMIN 4.2 GM/DL (3.2-4.5); ALKALINE PHOSPHATASE 78 U/L (40-136); BUN/CREATININE RATIO 23; CALCIUM 9.7 MG/DL (8.5-10.1); CARBON DIOXIDE 24 MMOL/L (21-32); CHLORIDE 96 MMOL/L (98-107); CREATININE SERUM 0.62 MG/DL (0.60-1.30); GFR ESTIMATED > 60; GLUCOSE 98 MG/DL (70-105); POTASSIUM 3.6 MMOL/L (3.6-5.0); SODIUM 133 MMOL/L (135-145); TOTAL PROTEIN 7.3 GM/DL (6.4-8.2)
[2017-05-06] MEDS: NS IV 1000 ML 1,000 ML IV SCH (19:49)
--- NOTE | 2017-05-06 19:50 | Diagnostic Imaging Report ---
CLINICAL INDICATION: Patient with fever and left-sided flank pain and back pain. Patient has nausea and vomiting, shortness of air, and headache starting yesterday. EXAM: CT exam of the abdomen and pelvis is performed without IV or oral contrast using stone protocol. Coronal and sagittal reformatted images were created. COMPARISONS: CT scan of the chest, abdomen, and pelvis without contrast dated 10/27/2014. FINDINGS: Visualized lung bases: Unremarkable. Liver: There is interval development of an at least 2.0 cm area of low density involving the left lobe of the liver that involves both sides of the left lobe of the liver in the region of the falciform ligament. This is nonspecific, and does not appear to represent a cyst. This appears pretty well demarcated to represent focal fatty infiltration, but it cannot be completely excluded. The liver is otherwise unremarkable. Gallbladder: Unremarkable. Pancreas: Unremarkable as visualized. Spleen: Unremarkable as visualized. Adrenal glands: Unremarkable. Kidneys/ ureters: Both kidneys have stable lobulated appearance which may be related to scarring predominantly in the upper poles bilaterally. There is stable mild prominence of the bilateral renal pelves with no hydronephrosis. There is minimal fat stranding adjacent to the left kidney and Gerota's fascia region which is nonspecific. There also appears to be mild fat stranding adjacent to the proximal left ureter, mid left ureter region. There are no urinary tract stones. There is no renal mass seen. Aorta: Unremarkable as visualized. Intraabdominal/ retroperitoneal contents: Unremarkable. Intestines: There are colonic diverticula involving the transverse colon with no CT evidence of diverticulitis. Appendix: Unremarkable. Bladder: Unremarkable as visualized. There are no stones seen. Pelvic organs: Unremarkable as visualized. Uterus and adnexal structures are unremarkable. There are multiple phleboliths seen in the pelvis. Extra abdominal/ pelvis regions: Unremarkable. Abdominal wall: Unremarkable. Bones: Unremarkable. IMPRESSION: 1: There is interval development of nonspecific mild fat stranding adjacent to the left kidney and left ureter. There are no urinary tract stones seen. Pyelonephritis should be excluded. Other consideration may include a left ureteral stone which has passed and not evident in the bladder. 2: There is stable lobulated appearance of both kidneys predominantly in the upper poles, which may be related to scarring. 3: There is interval development of a circumscribed amorphous roughly 2 cm low-density area involving the left lobe of the liver near the falciform ligament. This does not have the appearance of a cyst. Focal fatty infiltration may be considered, but other lesion cannot be excluded. Clinical correlation for trauma in this region would also help better evaluate. Nonemergent MRI of the liver with and without contrast would better evaluate to exclude a liver mass. Dictated by: Dictated on workstation # [id number]
[2017-05-06] MEDS ORDERED: PROMETHAZINE INJ 25 MG/ML (PHENERGAN) AMP IVP PRN (20:00)
[2017-05-06] MEDS: cefTRIAXone INJECTION 1,000 MG in NS (IVPB) 100 ML IV SCH (20:24)
--- NOTE | 2017-05-06 20:31 | Diagnostic Imaging Report ---
Clinical indication: Rule out pneumonia. Exam: Chest x-ray PA and lateral views. Comparisons: Chest x-ray dated 05/19/2016. Findings: Lungs/pleura: Lungs are clear. There is no pneumothorax. There is no pleural effusion. Mediastinum: Unremarkable. Pulmonary vasculature: Unremarkable. Heart: Unremarkable. Bones/extrathoracic soft tissue: Unremarkable. Impression: There is no radiographic evidence of acute cardiopulmonary process. Dictated by: Dictated on workstation # [id number]
[2017-05-06] MEDS: morphine INJ 4 MG/ML 1 ML (VIAL/SYRINGE) IVP PRN ×2 (20:35→23:17)
[2017-05-06] MEDS: ACETAMINOPHEN 325 MG TABLET/CAPLET (TYLENOL) PO PRN (23:37)
[2017-05-07] VITALS (12 sets, daily range): BP systolic 89–113; BP diastolic 60–79
[2017-05-07] MEDS: NS IV 1000 ML 1,000 ML IV SCH ×4 (00:20→23:26)
[2017-05-07] MEDS: morphine INJ 4 MG/ML 1 ML (VIAL/SYRINGE) IVP PRN ×5 (02:20→22:20)
[2017-05-07 02:49] LABS: BILIRUBIN,URINE NEGATIVE (NEGATIVE); CLARITY,URINE SLIGHTLY CLOUDY; COLOR,URINE YELLOW; GLUCOSE, URINE (UA) NEGATIVE (NEGATIVE); KETONES,URINE 3+ (NEGATIVE); LEUKOCYTE ESTERASE ,URINE 3+ (NEGATIVE); NITRITE,URINE POSITIVE (NEGATIVE); PH,URINE 6.5 (5-9); PROTEIN,URINE 3+ (NEGATIVE); UROBILINOGEN,URINE NORMAL (NORMAL)
[2017-05-07 03:15] LABS: BACTERIA,URINE LARGE /HPF; RBC,URINE 50-100 /HPF; WBC,URINE 50-100 /HPF
[2017-05-07 03:49] LABS: BASOPHILS % (AUTO) 0 % (0-10); EOSINOPHILS % (AUTO) 0 % (0-10); HEMATOCRIT 33 % (35-52); HEMOGLOBIN 11.3 G/DL (11.5-16.0); LYMPHOCYTES # (AUTO) 0.6 X 10^3 (1.0-4.0); LYMPHOCYTES % (AUTO) 4 % (12-44); MEAN CORPUSCULAR HEMOGLOBIN 31 PG (25-34); MEAN CORPUSCULAR HGB CONC 34 G/DL (32-36); MEAN CORPUSCULAR VOLUME 92 FL (80-99); MEAN PLATELET VOLUME 9.1 FL (7.4-10.4); MONOCYTES # (AUTO) 0.4 X 10^3 (0.0-1.0); MONOCYTES % (AUTO) 3 % (0-12); NEUTROPHILS # (AUTO) 12.5 X 10^3 (1.8-7.8); NEUTROPHILS % (AUTO) 93 % (42-75); PLATELET COUNT 149 10^3/uL (130-400); RED BLOOD COUNT 3.65 10^6/uL (4.35-5.85); RED CELL DISTRIBUTION WIDTH 14.1 % (10.0-14.5); WHITE BLOOD COUNT 13.4 10^3/uL (4.3-11.0)
[2017-05-07 04:05] LABS: BUN/CREATININE RATIO 20; CALCIUM 8.2 MG/DL (8.5-10.1); CARBON DIOXIDE 27 MMOL/L (21-32); CHLORIDE 100 MMOL/L (98-107); CREATININE SERUM 0.64 MG/DL (0.60-1.30); GFR ESTIMATED > 60; GLUCOSE 131 MG/DL (70-105); SODIUM 136 MMOL/L (135-145)
--- NOTE | 2017-05-07 05:04 | Pulmonary Consultation ---
History of Present Illness History of Present Illness Date of Consultation 05/07/17 04:59 Date of Admission Allergies and Home Medications Allergies Coded Allergies: No Known Drug Allergies (Unverified , 08/30/14) Past Yaeahzb-[id number]-Npsvvz Hx Patient Social History Alcohol Use: Rarely Uses Number of Drinks Today: 0 Recreational Drug Use: No Smoking Status: Former Smoker Former Smoker, Quit: Dec 06, 2016 Recent Foreign Travel: No Contact w/Someone Who Travel: No Recent Infectious Disease Expo: No Recent Hopitalizations: No Immunizations Up To Date PED Vaccines UTD: No Date of Pneumonia Vaccine: Mar 01, 2013 Seasonal Allergies Seasonal Allergies: Yes Surgeries History of Surgeries: Yes (PICC LINE PLACEMENT) Respiratory History of Respiratory Disorde: No Cardiovascular History of Cardiac Disorders: No Neurological History of Neurological Disord: No Reproductive System Hx Reproductive Disorders: No Genitourinary History of Genitourinary Disor: No Gastrointestinal History of Gastrointestinal Di: No Musculoskeletal History of Musculoskeletal Dis: No Endocrine History of Endocrine Disorders: Yes (HASHIMODOS) HEENT History of HEENT Disorders: No Cancer History of Cancer: No Psychosocial History of Psychiatric Problem: No Integumentary History of Skin or Integumenta: No Blood Transfusions History of Blood Disorders: Yes (LYME DZ) Family Medical History Family Medial History: GERD G8 SISTER, Onset:Unknown Hypertension 19 FATHER, Onset:Unknown Exam Exam Vital Signs Date Time Temp Pulse Resp B/P (MAP) Pulse Ox O2 Delivery O2 Flow Rate FiO2 05/07/17 04:00 102 99/68 (78) 99 Room Air 05/07/17 04:00 96 Room Air 05/07/17 03:00 104 12 99/63 (75) 96 Room Air 05/07/17 02:00 100 11 98/64 (75) 98 Room Air 05/07/17 01:00 112 12 109/69 (82) 95 Room Air 05/07/17 01:00 112 05/07/17 00:00 96 Room Air 05/07/17 00:00 117 19 112/77 (89) 98 Room Air 05/06/17 23:37 102.0 05/06/17 23:36 102.0 05/06/17 23:00 130 16 124/75 (91) 96 Room Air 05/06/17 22:00 125 19 127/81 (96) 97 Room Air 05/06/17 21:45 129 19 117/84 (95) 98 Room Air 05/06/17 21:31 100.2 05/06/17 21:30 128 124/82 (96) 96 Room Air 05/06/17 21:15 140 118/72 (87) 97 Room Air 05/06/17 21:00 134 117/79 (92) 97 Room Air 05/06/17 20:45 134 23 121/83 (96) 96 Room Air 05/06/17 20:30 136 129/83 (98) 97 Room Air 05/06/17 20:28 103.2 05/06/17 20:15 154 25 136/77 (96) 96 Room Air 05/06/17 20:00 133 13 145/94 (111) 97 Room Air 05/06/17 19:45 133 21 142/100 (114) 94 Room Air 05/06/17 19:39 104.4 130 20 149/93 (111) 96 Room Air 05/06/17 19:37 132 05/06/17 19:05 Room Air I & O 05/07/17 07:00 Intake Total 1250 ml Output Total 900 ml Balance 350 ml Results Lab Laboratory Tests 05/06/17 19:17 05/07/17 03:20 Assessment/Plan Assessment/Plan Sepsis with pylonephritis -Bailey culture -Rocephin -IVF UTI hypokalemia -replace Pt is doing better will transfer to [facility] and continue to monitor. All labs and radiology reviewed 255 PALMA REILLY DO May 07, 2017 05:04
[2017-05-07] MEDS: MAGNESIUM 1 GM/100 ML IVPB 100 ML IV SCH ×6 (05:34→11:37)
[2017-05-07] MEDS ORDERED: MAGNESIUM 1 GM/100 ML IVPB 100 ML IV SCH (06:00)
[2017-05-07] MEDS ORDERED: POTASSIUM CL 10MEQ/50ML IVPB 50 ML IV SCH (06:00)
[2017-05-07] MEDS ORDERED: KCL 20 MEQ TAB (K-DUR) PO SCH (06:00)
[2017-05-07] MEDS ORDERED: INFLUENZA TRIvalent 2017-2018 0.5 ML/45 MCG SYR IM ONE (07:45)
--- NOTE | 2017-05-07 08:12 | Diagnostic Imaging Report ---
EXAMINATION: Chest radiograph, portable AP view. DATE: May 07, 2017 at 0220 hours. INDICATION: 32-year-old female, left flank pain, fever. COMPARISON: May 06, 2017. FINDINGS: Heart size and mediastinal contours are unremarkable. There is no identified pneumothorax. There is no large pleural effusion. There is no focal airspace consolidation. IMPRESSION: No identified acute cardiopulmonary abnormality. Dictated by: Dictated on workstation # [id number]
--- NOTE | 2017-05-07 08:14 | History & Physical-Hospitalist ---
HPI History of Present Illness: HPI/Chief Complaint Pt is a 32yoCF with a PMH of lyme disease, hypothyroidism who presented to the urgent care with CC of back pain. She states her pain started 2 days ago. It was mostly lower left sided and was sharp and severe in nature. It continued to worsen yesterday prompting her to seek evaluation at [facility]. She developed a fever while at [facility] despite 1 30mg dose of Toradol. She was also given 1L of IVF, 12.5mg Phenergan, and 1g of rocephin. Despite this she had persistent nausea and pain and was direct admitted for presumed pyelonephritis. Today she states her pain has improved with morphine and her nausea is improving as well. She still is having intermittent cramping back pain though. She has not history of kidney stones and did not noticed and hematuria or discoloration of urine. She did think he urine was cloudy though. Source: patient Date Seen 05/07/17 Time Seen by Provider: 07:55 Attending Physician Johanny Stewart MD PCP Leeroy Hopson DO Referring Physician Date of Admission May 06, 2017 at 6:57 pm Home Medications & Allergies Home Medications Reviewed patient Home Medication Reconciliation Form Allergies Allergies Coded Allergies No Known Drug Allergies (Unverified08/30/14) Past Csanrfa-Cmexlr-Ppsglh Hx Patient Social History Marrital Status: single Employed/Student: employed Alcohol Use: Rarely Uses Number of Drinks Today: 0 Recreational Drug Use: No Smoking Status: Former Smoker Former Smoker, Quit: Dec 06, 2016 Physical Abuse Screen: No Sexual Abuse: No Recent Foreign Travel: No Contact w/other who traveled: No Recent Hopitalizations: No Recent Infectious Disease Expo: No Immunizations Up To Date Pediatric: No Date of Pneumonia Vaccine: Mar 01, 2013 Seasonal Allergies Seasonal Allergies: Yes Surgeries Yes (PICC LINE PLACEMENT) Breast Respiratory No Cardiovascular No Neurological No Reproductive System Hx Reproductive Disorders: No Genitourinary Yes Kidney Infection, Bladder Infection Gastrointestinal No Musculoskeletal No 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) HEENT History of HEENT Disorders: No Cancer No Psychosocial History of Psychiatric Problem: No Integumentary History of Skin or Integumenta: No Blood Transfusions History of Blood Disorders: Yes (LYME DZ) Family Medical History Significant Family History: Hypertension Family Hx: GERD G8 SISTER, Onset:Unknown Hypertension 19 FATHER, Onset:Unknown Review of Systems Constitutional: see HPI, No diaphoresis, fever EENTM: No blurred vision, No double vision, No nose congestion, No throat pain Respiratory: No cough, No dyspnea on exertion, No short of breath Cardiovascular: No chest pain, No edema, No palpitations Gastrointestinal: abdominal pain, No constipation, No diarrhea, No nausea, No vomiting Genitourinary: No dysuria, No hematuria, No incontinence, other (cloudy urine) LMP: Apr 30, 2017 Musculoskeletal: back pain, No joint pain, No muscle pain Skin: No lesions, No rash Psychiatric/Neurological: Denies Emotional Problems, Denies Headache, Denies Numbness, Denies Tingling Physical Exam Physical Exam Vital Signs Vital Signs - First Documented 05/06/17 05/06/17 05/06/17 19:05 19:37 19:39 Temp 104.4 Pulse 132 Resp 20 B/P (MAP) 149/93 (111) Pulse Ox 96 O2 Delivery Room Air Capillary Refill : General Appearance: No Apparent Distress, WD/WN HEENT: PERRL/EOMI, Moist Mucous Membranes, No Scleral Icterus (L), No Scleral Icterus (R) Neck: Normal Inspection, Non Tender, Supple, No JVD, No Thyromegaly Respiratory: Lungs Clear, No Respiratory Distress Cardiovascular: Regular Rate, Rhythm, No Murmur Gastrointestinal: Normal Bowel Sounds, Non Tender, Soft Back: CVA Tenderness (L), No CVA Tenderness (R), No Vertebral Tenderness Extremity: Normal Capillary Refill, Non Tender, No Calf Tenderness, No Pedal Edema Neurologic/Psychiatric: Alert, Oriented x3, Normal Mood/Affect Skin: Normal Color, Warm/Dry Results Results/Procedures Lab Laboratory Tests 05/06/17 19:17 05/07/17 03:[address] ABD/PELVIS WO(KIDNEY STONE) CLINICAL INDICATION: Patient with fever and left-sided flank pain and back pain. Patient has nausea and vomiting, shortness of air, and headache starting yesterday. EXAM: CT exam of the abdomen and pelvis is performed without IV or oral contrast using stone protocol. Coronal and sagittal reformatted images were created. COMPARISONS: CT scan of the chest, abdomen, and pelvis without contrast dated 10/27/2014. FINDINGS: Visualized lung bases: Unremarkable. Liver: There is interval development of an at least 2.0 cm area of low density involving the left lobe of the liver that involves both sides of the left lobe of the liver in the region of the falciform ligament. This is nonspecific, and does not appear to represent a cyst. This appears pretty well demarcated to represent focal fatty infiltration, but it cannot be completely excluded. The liver is otherwise unremarkable. Gallbladder: Unremarkable. Pancreas: Unremarkable as visualized. Spleen: Unremarkable as visualized. Adrenal glands: Unremarkable. Kidneys/ ureters: Both kidneys have stable lobulated appearance which may be related to scarring predominantly in the upper poles bilaterally. There is stable mild prominence of the bilateral renal pelves with no hydronephrosis. There is minimal fat stranding adjacent to the left kidney and Gerota's fascia region which is nonspecific. There also appears to be mild fat stranding adjacent to the proximal left ureter, mid left ureter region. There are no urinary tract stones. There is no renal mass seen. Aorta: Unremarkable as visualized. Intraabdominal/ retroperitoneal contents: Unremarkable. Intestines: There are colonic diverticula involving the transverse colon with no CT evidence of diverticulitis. Appendix: Unremarkable. Bladder: Unremarkable as visualized. There are no stones seen. Pelvic organs: Unremarkable as visualized. Uterus and adnexal structures are unremarkable. There are multiple phleboliths seen in the pelvis. Extra abdominal/ pelvis regions: Unremarkable. Abdominal wall: Unremarkable. Bones: Unremarkable. IMPRESSION: 1: There is interval development of nonspecific mild fat stranding adjacent to the left kidney and left ureter. There are no urinary tract stones seen. Pyelonephritis should be excluded. Other consideration may include a left ureteral stone which has passed and not evident in the bladder. 2: There is stable lobulated appearance of both kidneys predominantly in the upper poles, which may be related to scarring. 3: There is interval development of a circumscribed amorphous roughly 2 cm low-density area involving the left lobe of the liver near the falciform ligament. This does not have the appearance of a cyst. Focal fatty infiltration may be considered, but other lesion cannot be excluded. Clinical correlation for trauma in this region would also help better evaluate. Nonemergent MRI of the liver with and without contrast would better evaluate to exclude a liver mass. Assessment/Plan Admission Diagnosis Sepsis Admission Status: Inpatient Order (span 2 midnights) Reason for Inpatient Admission: Sepsis necessitating IV abx Diagnosis/Problems Diagnosis/Problems (1) Sepsis Status: Acute Assessment & Plan: UA consistent with UTI Met sepsis criteria with Fever, tachycardia, and leukopenia on admission Patient normally has no BP problems and was receiving IV magnesium so hypotension documented this AM was likely iatrogenic Lactic normal, no need for 30cc/kg bolus Urine and Blood cultures ordered but received after antibiotics given at Urgent Care Continue Rocephin as is improving I called and discussed with [facility] and [facility] who will fax results of cultures when available Qualifiers: Qualified Codes: A41.9 - Sepsis, unspecified organism (2) Bacteremia Status: Acute Assessment & Plan: GNR growing on blood cultures Continue on rocephin Like due to obstructing kidney stone that has now passed (3) Pyelonephritis Assessment & Plan: Not seen on CT but clinically appears to have pyelonephritis (UA consistent with infection, CVA tenderness, sepsis) Continue abx (4) Hypokalemia Assessment & Plan: Replaced per protocol this AM (5) Hypomagnesemia Assessment & Plan: Replaced this AM Will recheck this afternoon (6) Prophylactic measure Assessment & Plan: Lovenox Reg Diet NS @ 125ml/hr Clinical Quality Measures DVT/VTE Risk/Contraindication: Risk Factor Score Per Nursin RFS Level Per Nursing on Admit: 1=Low/No VTE PPX JOHANNY STEWART MD May 07, 2017 08:14
[2017-05-07] MEDS ORDERED: KCL 20 MEQ TAB (K-DUR) PO ONE ×3 (09:00→13:00)
[2017-05-07] MEDS: HYDROcodone/APAP 5 MG/325 MG (LORTAB) TAB PO PRN ×4 (09:15→23:26)
[2017-05-07] MEDS ORDERED: FLUC100T6 PO (09:39)
[2017-05-07] MEDS ORDERED: MULT-35 PO (09:39)
[2017-05-07] MEDS ORDERED: IBUP-30 PO (09:39)
[2017-05-07] MEDS ORDERED: PHEN37.53 PO (09:39)
[2017-05-07] MEDS ORDERED: METF500T8 PO (09:39)
[2017-05-07] MEDS ORDERED: CLON0.5T PO (09:39)
[2017-05-07] MEDS ORDERED: TRIA1TAB3 PO (09:39)
[2017-05-07] MEDS ORDERED: clonazePAM 0.5 MG (KlonoPIN) TAB PO PRN (12:30)
[2017-05-07 17:18] LABS: MAGNESIUM 2.6 MG/DL (1.8-2.4); POTASSIUM 4.1 MMOL/L (3.6-5.0)
[2017-05-07] MEDS: cefTRIAXone INJECTION 1,000 MG in NS (IVPB) 100 ML IV SCH (19:30)
[2017-05-08 00:55] VITALS: BP 106/70
[2017-05-08 03:29] LABS: BASOPHILS % (AUTO) 0 % (0-10); EOSINOPHILS # (AUTO) 0.1 10^3/uL (0.0-0.3); EOSINOPHILS % (AUTO) 1 % (0-10); HEMATOCRIT 33 % (35-52); HEMOGLOBIN 10.7 G/DL (11.5-16.0); LYMPHOCYTES # (AUTO) 0.8 X 10^3 (1.0-4.0); LYMPHOCYTES % (AUTO) 6 % (12-44); MEAN CORPUSCULAR HEMOGLOBIN 31 PG (25-34); MEAN CORPUSCULAR HGB CONC 33 G/DL (32-36); MEAN CORPUSCULAR VOLUME 94 FL (80-99); MEAN PLATELET VOLUME 9.5 FL (7.4-10.4); MONOCYTES # (AUTO) 0.5 X 10^3 (0.0-1.0); MONOCYTES % (AUTO) 3 % (0-12); NEUTROPHILS # (AUTO) 13.3 X 10^3 (1.8-7.8); NEUTROPHILS % (AUTO) 90 % (42-75); PLATELET COUNT 134 10^3/uL (130-400); RED BLOOD COUNT 3.47 10^6/uL (4.35-5.85); RED CELL DISTRIBUTION WIDTH 14.7 % (10.0-14.5); WHITE BLOOD COUNT 14.8 10^3/uL (4.3-11.0)
[2017-05-08] MEDS: NS IV 1000 ML 1,000 ML IV SCH (03:42)
[2017-05-08] MEDS: HYDROcodone/APAP 5 MG/325 MG (LORTAB) TAB PO PRN ×3 (03:42→22:03)
[2017-05-08 03:47] LABS: BUN/CREATININE RATIO 22; CARBON DIOXIDE 23 MMOL/L (21-32); CHLORIDE 108 MMOL/L (98-107); CREATININE SERUM 0.59 MG/DL (0.60-1.30); GFR ESTIMATED > 60; GLUCOSE 92 MG/DL (70-105); MAGNESIUM 2.2 MG/DL (1.8-2.4); PHOSPHORUS 1.6 MG/DL (2.3-4.7); POTASSIUM 4.2 MMOL/L (3.6-5.0); SODIUM 137 MMOL/L (135-145)
[2017-05-08 03:49] LABS: BAND NEUTROPHILS 21 %; LYMPHOCYTES % (MANUAL) 4 %; MONOCYTES % (MANUAL) 1 %; NEUTROPHILS % (MANUAL) 74 %; RBC MORPH NORMAL
[2017-05-08 04:25] VITALS: BP 105/74
[2017-05-08] MEDS ORDERED: MEROPENEM 1,000 MG in NS (IVPB) 100 ML IV SCH (07:45)
[2017-05-08 08:00] VITALS: BP 114/76
[2017-05-08] MEDS ORDERED: SENNA W/DOCUSATE (SENOKOT S) TABLET PO PRN (08:00)
--- NOTE | 2017-05-08 08:01 | Progress Note-Hospitalist ---
Subjective HPI/CC On Admission Date Seen by Provider: May 08, 2017 Time Seen by Provider: 07:45 Pt is a 32yoCF with a PMH of lyme disease, hypothyroidism who presented to the urgent care with CC of back pain. She states her pain started 2 days ago. It was mostly lower left sided and was sharp and severe in nature. It continued to worsen yesterday prompting her to seek evaluation at [facility]. She developed a fever while at [facility] despite 1 30mg dose of Toradol. She was also given 1L of IVF, 12.5mg Phenergan, and 1g of rocephin. Despite this she had persistent nausea and pain and was direct admitted for presumed pyelonephritis. Today she states her pain has improved with morphine and her nausea is improving as well. She still is having intermittent cramping back pain though. She has not history of kidney stones and did not noticed and hematuria or discoloration of urine. She did think he urine was cloudy though. Subjective/Events-last exam Pt reports feeling better. Still having back pain. Last BM Wednesday. Feels a little bloated. No leg swelling but complains of problems with "fluid retention " for which she is on diuretics as an outpatient. Objective Exam Vital Signs Vital Signs Date Time Temp Pulse Resp B/P (MAP) Pulse Ox O2 Delivery O2 Flow Rate FiO2 05/06/17 19:05 Room Air 05/06/17 19:37 132 05/06/17 19:39 104.4 20 149/93 (111) 96 Capillary Refill : General Appearance: No Apparent Distress, WD/WN Respiratory: Lungs Clear, No Respiratory Distress Cardiovascular: Regular Rate, Rhythm, No Murmur Gastrointestinal: Normal Bowel Sounds, Non Tender, Soft Extremity: Non Tender, No Calf Tenderness, No Pedal Edema Neurologic/Psychiatric: Alert, Oriented x3 Skin: Normal Color, Warm/Dry Results/Procedures Lab Laboratory Tests 05/07/17 16:59 05/08/17 03:20 Assessment/Plan Assessment and Plan Assess & Plan/Chief Complaint ESBL e coli bacteremia Diagnosis/Problems Diagnosis/Problems (1) Sepsis Status: Acute Assessment & Plan: UA consistent with UTI Urine and Blood cultures ordered here but received after antibiotics given at Urgent Care I called and discussed with [facility] and 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
--- NOTE | 2017-05-08 08:19 | Diagnostic Imaging Report ---
Indication: Fever Comparison: 05/07/2017 Findings: Upright portable view of the chest is obtained. Heart size is normal. The pulmonary vessels appear unremarkable. There is no pneumothorax, mediastinal widening or pleural fluid. There is infiltrate in the right lower lobe. The left lung is clear. Impression: New right lower lobe pneumonia. Dictated by: Dictated on workstation # [id number]
[2017-05-08] MEDS: MEROPENEM 500 MG in NS (IVPB) 100 ML IV SCH ×4 (08:41→23:29)
[2017-05-08] MEDS: LACTOBACILLUS Acidoph/Bulgar (LACTINEX/FLORANEX) TAB PO SCH ×2 (11:55→18:01)
[2017-05-08 12:00] VITALS: BP 112/74
[2017-05-08] MEDS: IBUPROFEN 600 MG (MOTRIN) TAB PO PRN (13:15)
[2017-05-08 16:50] VITALS: BP 115/77
[2017-05-08] MEDS ORDERED: RT-ALBUTEROL SULF 2.5 MG/3 ML PRE-MIX VIAL INH PRN (18:15)
[2017-05-08 21:30] VITALS: BP 134/89
[2017-05-08] MEDS: ACETAMINOPHEN 325 MG TABLET/CAPLET (TYLENOL) PO PRN (22:05)
[2017-05-09 00:49] VITALS: BP 118/78
[2017-05-09] MEDS: LACTOBACILLUS Acidoph/Bulgar (LACTINEX/FLORANEX) TAB PO SCH ×3 (05:08→17:00)
[2017-05-09] MEDS: MEROPENEM 500 MG in NS (IVPB) 100 ML IV SCH ×3 (05:08→18:16)
[2017-05-09 06:00] LABS: BASOPHILS % (AUTO) 0 % (0-10); EOSINOPHILS # (AUTO) 0.1 10^3/uL (0.0-0.3); EOSINOPHILS % (AUTO) 1 % (0-10); HEMATOCRIT 35 % (35-52); HEMOGLOBIN 11.6 G/DL (11.5-16.0); LYMPHOCYTES # (AUTO) 0.6 X 10^3 (1.0-4.0); LYMPHOCYTES % (AUTO) 5 % (12-44); MEAN CORPUSCULAR HEMOGLOBIN 30 PG (25-34); MEAN CORPUSCULAR HGB CONC 33 G/DL (32-36); MEAN CORPUSCULAR VOLUME 92 FL (80-99); MEAN PLATELET VOLUME 9.9 FL (7.4-10.4); MONOCYTES # (AUTO) 0.9 X 10^3 (0.0-1.0); MONOCYTES % (AUTO) 6 % (0-12); NEUTROPHILS % (AUTO) 88 % (42-75); PLATELET COUNT 178 10^3/uL (130-400); RED BLOOD COUNT 3.82 10^6/uL (4.35-5.85); RED CELL DISTRIBUTION WIDTH 14.2 % (10.0-14.5); WHITE BLOOD COUNT 13.6 10^3/uL (4.3-11.0)
[2017-05-09 06:27] LABS: BUN/CREATININE RATIO 15; CALCIUM 8.8 MG/DL (8.5-10.1); CARBON DIOXIDE 26 MMOL/L (21-32); CHLORIDE 104 MMOL/L (98-107); GFR ESTIMATED > 60; GLUCOSE 102 MG/DL (70-105); MAGNESIUM 1.5 MG/DL (1.8-2.4); POTASSIUM 3.7 MMOL/L (3.6-5.0); SODIUM 138 MMOL/L (135-145)
[2017-05-09 08:00] VITALS: BP 122/52
--- NOTE | 2017-05-09 09:44 | Diagnostic Imaging Report ---
EXAM: CHEST 1 VIEW, AP/PA ONLY INDICATION: Fever. COMPARISON: Chest radiograph 05/08/2017. FINDINGS: Normal heart size and pulmonary vascularity. Persistent airspace consolidation in the right lung base. No pleural effusion or pneumothorax. No acute osseous findings. IMPRESSION: Persistent airspace consolidation in the right lung base. Dictated by: Dictated on workstation # [id number]
--- NOTE | 2017-05-09 11:29 | Progress Note-Hospitalist ---
Subjective HPI/CC On Admission Date Seen by Provider: May 09, 2017 Time Seen by Provider: 11:24 Pt is a 32yoCF with a PMH of lyme disease, hypothyroidism who presented to the urgent care with CC of back pain. She states her pain started 2 days ago. It was mostly lower left sided and was sharp and severe in nature. It continued to worsen yesterday prompting her to seek evaluation at [facility]. She developed a fever while at [facility] despite 1 30mg dose of Toradol. She was also given 1L of IVF, 12.5mg Phenergan, and 1g of rocephin. Despite this she had persistent nausea and pain and was direct admitted for presumed pyelonephritis. Today she states her pain has improved with morphine and her nausea is improving as well. She still is having intermittent cramping back pain though. She has not history of kidney stones and did not noticed and hematuria or discoloration of urine. She did think he urine was cloudy though. Subjective/Events-last exam Pt reports persistent cough with some sputum production. She has tried breathing treatments without improvement. She is eating well, drinking well. No diarrhea. Objective Exam Vital Signs Vital Signs Date Time Temp Pulse Resp B/P (MAP) Pulse Ox O2 Delivery O2 Flow Rate FiO2 05/06/17 19:05 Room Air 05/06/17 19:37 132 05/06/17 19:39 104.4 20 149/93 (111) 96 05/09/17 00:49 2.00 Capillary Refill : General Appearance: No Apparent Distress, WD/WN Respiratory: Lungs Clear, No Respiratory Distress, No Wheezing Cardiovascular: Regular Rate, Rhythm, No Murmur Gastrointestinal: Normal Bowel Sounds, Non Tender, Soft Neurologic/Psychiatric: Alert, Oriented x3, Normal Mood/Affect Skin: Normal Color, Warm/Dry Results/Procedures Lab Laboratory Tests 05/09/17 05:35 Assessment/Plan Assessment and Plan Assess & Plan/Chief Complaint ESBL e coli bacteremia Diagnosis/Problems Diagnosis/Problems (1) Sepsis Status: Acute Assessment & Plan: UA consistent with UTI Urine and Blood cultures ordered here but received after antibiotics given at Urgent Care I called and discussed with [facility] and [facility] who will fax results of cultures when available Urine and blood cultures from here now growing ESBL e coli Continue Merrem Will consult IV team for PICC placement tomorrow Probiotic Leukocytosis trending down, fever curve trending down Qualifiers: Qualified Codes: A41.9 - Sepsis, unspecified organism (2) CAP (community acquired pneumonia) Status: Acute Assessment & Plan: Continue Abx as above Pulm consulted, appreciate recs Qualifiers: Qualified Codes: J18.1 - Lobar pneumonia, unspecified organism (3) Bacteremia Status: Acute Assessment & Plan: ESBL e coli growing on blood cultures Merrem as above Will need nursing home course with IV abx Will repeat blood cultures tomorrow after initiation of Merrem to ensure clearance before PICC placement Like due to obstructing kidney stone that has now passed (4) Pyelonephritis Assessment & Plan: Not seen on CT but clinically appears to have pyelonephritis (UA consistent with infection, CVA tenderness, sepsis) Continue abx (5) Hypokalemia Status: Resolved Assessment & Plan: resolved (6) Hypomagnesemia Status: Acute Assessment & Plan: Will replace (7) Prophylactic measure Assessment & Plan: Lovenox Reg Diet Saline Lock ANTONIO FIERRO MD May 09, 2017 11:29 am
[2017-05-09] MEDS: MAGNESIUM 1 GM/100 ML IVPB 100 ML IV SCH ×2 (11:35→12:35)
[2017-05-09 16:30] VITALS: BP 128/87
[2017-05-09] MEDS: HYDROcodone/APAP 5 MG/325 MG (LORTAB) TAB PO PRN ×2 (18:19→22:21)
[2017-05-09] MEDS: guaiFENesin (MUCINEX) 600 MG TAB PO SCH (19:45)
[2017-05-10] MEDS: ACETAMINOPHEN 325 MG TABLET/CAPLET (TYLENOL) PO PRN (00:05)
[2017-05-10] MEDS: MEROPENEM 500 MG in NS (IVPB) 100 ML IV SCH ×5 (00:05→23:12)
[2017-05-10 00:25] VITALS: BP 120/76
[2017-05-10] MEDS: LACTOBACILLUS Acidoph/Bulgar (LACTINEX/FLORANEX) TAB PO SCH ×3 (05:05→17:10)
[2017-05-10] MEDS: POLYETHYLENE GLYCOL 17 GM (MIRALAX) PACK PO PRN ×2 (05:13→20:22)
[2017-05-10 06:09] LABS: BASOPHILS % (AUTO) 0 % (0-10); EOSINOPHILS # (AUTO) 0.2 10^3/uL (0.0-0.3); EOSINOPHILS % (AUTO) 3 % (0-10); HEMATOCRIT 36 % (35-52); HEMOGLOBIN 12.2 G/DL (11.5-16.0); LYMPHOCYTES % (AUTO) 14 % (12-44); MEAN CORPUSCULAR HEMOGLOBIN 31 PG (25-34); MEAN CORPUSCULAR HGB CONC 34 G/DL (32-36); MEAN CORPUSCULAR VOLUME 90 FL (80-99); MEAN PLATELET VOLUME 9.3 FL (7.4-10.4); MONOCYTES % (AUTO) 14 % (0-12); NEUTROPHILS % (AUTO) 69 % (42-75); PLATELET COUNT 199 10^3/uL (130-400); RED BLOOD COUNT 3.96 10^6/uL (4.35-5.85); RED CELL DISTRIBUTION WIDTH 13.9 % (10.0-14.5); WHITE BLOOD COUNT 7.2 10^3/uL (4.3-11.0)
[2017-05-10 06:26] LABS: BUN/CREATININE RATIO 14; CALCIUM 8.9 MG/DL (8.5-10.1); CARBON DIOXIDE 25 MMOL/L (21-32); CHLORIDE 103 MMOL/L (98-107); CREATININE SERUM 0.63 MG/DL (0.60-1.30); GFR ESTIMATED > 60; GLUCOSE 123 MG/DL (70-105); MAGNESIUM 1.6 MG/DL (1.8-2.4); POTASSIUM 3.3 MMOL/L (3.6-5.0); SODIUM 138 MMOL/L (135-145)
[2017-05-10 08:00] VITALS: BP 122/80
--- NOTE | 2017-05-10 09:10 | Pulmonary Progress Note ---
Subjective Time Seen by Provider: 09:10 Exam Exam Vital Signs Date Time Temp Pulse Resp B/P (MAP) Pulse Ox O2 Delivery O2 Flow Rate FiO2 05/10/17 00:25 99.1 89 18 120/76 (91) 96 Room Air 05/09/17 22:25 Room Air 05/09/17 20:16 Room Air 05/09/17 16:30 99.4 79 18 128/87 (101) 98 Room Air I & O 05/10/17 07:00 Intake Total 4390 ml Output Total 2400 ml Balance 1990 ml General Appearance: No Apparent Distress, WD/WN HEENT: PERRL/EOMI, Moist Mucous Membranes, No Scleral Icterus (L), No Scleral Icterus (R) Neck: Normal Inspection, Non Tender, Supple, No JVD, No Thyromegaly Respiratory: Lungs Clear, No Respiratory Distress, No Wheezing Cardiovascular: Regular Rate, Rhythm, No Murmur Extremity: Non Tender, No Calf Tenderness, No Pedal Edema Neurologic/Psychiatric: Alert, Oriented x3, Normal Mood/Affect Skin: Normal Color, Warm/Dry Results Lab Laboratory Tests 05/09/17 05:35 05/10/17 06:00 Assessment/Plan Assessment/Plan Sepsis with pylonephritis -Bailey culture -Rocephin -IVF PNA -repeat CXR 8wks after discharge -Pt is on Merrem for ESBL + UTI and bacteremia UTI hypokalemia -replace 233 PALMA REILLY DO May 10, 2017 09:10
[2017-05-10] MEDS: guaiFENesin (MUCINEX) 600 MG TAB PO SCH ×2 (09:19→20:22)
[2017-05-10] MEDS: BISACODYL 5 MG (DULCOLAX) TABLET PO PRN ×2 (09:19→20:22)
[2017-05-10] MEDS: HYDROcodone/APAP 5 MG/325 MG (LORTAB) TAB PO PRN ×3 (09:19→23:12)
--- NOTE | 2017-05-10 12:49 | Progress Note-Hospitalist ---
Standard Progress Note Progress Notes/Assess & Plan Date Seen 05/10/17 Time Seen by Provider: 12:46 Diagnosis Sepsis Assess & Plan/Chief Complaint The patient is a 32-year-old white female who was admitted with sepsis. This nilson from a urinary tract infection which has proven to be multi drug resistant Escherichia coli. She also grew Escherichia coli on 2 blood cultures. She is doing much better at this time and is afebrile. She received 2 doses of Rocephin empirically before the sensitivities were available. Meropenem was started on the morning of 05/08. Given the positive blood cultures it is anticipated that she will need to be here at least until Friday 05/12. She has no complaints other than boredom. Physical exam: She is alert and oriented and appears her stated age. Lungs are clear to auscultation. CV is regular without murmur. There is no pain to percussion at the's CVAs bilaterally. Extremities show no pedal edema. Impression: Multi drug resistant Escherichia coli urinary tract infection. 2.septicemia. Plan: Continue meropenem Labs Laboratory Tests 05/09/17 05:35 05/10/17 06:00 SIERRA HOWELL MD May 10, 2017 12:49
[2017-05-10 16:00] VITALS: BP 123/79
[2017-05-10] MEDS: IBUPROFEN 600 MG (MOTRIN) TAB PO PRN (17:10)
[2017-05-11] VITALS: BP 107/66
[2017-05-11] MEDS: MEROPENEM 500 MG in NS (IVPB) 100 ML IV SCH ×3 (05:16→17:13)
[2017-05-11] MEDS: LACTOBACILLUS Acidoph/Bulgar (LACTINEX/FLORANEX) TAB PO SCH ×3 (05:18→17:13)
[2017-05-11] MEDS: IBUPROFEN 600 MG (MOTRIN) TAB PO PRN ×2 (05:19→17:54)
[2017-05-11 06:52] LABS: BASOPHILS % (AUTO) 1 % (0-10); EOSINOPHILS # (AUTO) 0.2 10^3/uL (0.0-0.3); EOSINOPHILS % (AUTO) 3 % (0-10); HEMATOCRIT 37 % (35-52); HEMOGLOBIN 12.4 G/DL (11.5-16.0); LYMPHOCYTES # (AUTO) 1.2 X 10^3 (1.0-4.0); LYMPHOCYTES % (AUTO) 15 % (12-44); MEAN CORPUSCULAR HEMOGLOBIN 31 PG (25-34); MEAN CORPUSCULAR HGB CONC 34 G/DL (32-36); MEAN CORPUSCULAR VOLUME 91 FL (80-99); MEAN PLATELET VOLUME 9.8 FL (7.4-10.4); MONOCYTES # (AUTO) 1.5 X 10^3 (0.0-1.0); MONOCYTES % (AUTO) 20 % (0-12); NEUTROPHILS # (AUTO) 4.8 X 10^3 (1.8-7.8); NEUTROPHILS % (AUTO) 62 % (42-75); PLATELET COUNT 258 10^3/uL (130-400); RED BLOOD COUNT 4.07 10^6/uL (4.35-5.85); RED CELL DISTRIBUTION WIDTH 13.9 % (10.0-14.5); WHITE BLOOD COUNT 7.8 10^3/uL (4.3-11.0)
[2017-05-11 07:11] LABS: BUN/CREATININE RATIO 20; CALCIUM 8.7 MG/DL (8.5-10.1); CARBON DIOXIDE 27 MMOL/L (21-32); CHLORIDE 103 MMOL/L (98-107); CREATININE SERUM 0.59 MG/DL (0.60-1.30); GFR ESTIMATED > 60; GLUCOSE 97 MG/DL (70-105); MAGNESIUM 1.5 MG/DL (1.8-2.4); POTASSIUM 3.2 MMOL/L (3.6-5.0); SODIUM 138 MMOL/L (135-145)
[2017-05-11 08:00] VITALS: BP 120/76
[2017-05-11] MEDS: guaiFENesin (MUCINEX) 600 MG TAB PO SCH ×2 (08:56→21:09)
[2017-05-11] MEDS: HYDROcodone/APAP 5 MG/325 MG (LORTAB) TAB PO PRN (08:57)
[2017-05-11] MEDS: BISACODYL 5 MG (DULCOLAX) TABLET PO PRN (08:57)
--- NOTE | 2017-05-11 15:08 | Progress Note-Hospitalist ---
Standard Progress Note Progress Notes/Assess & Plan Date Seen 05/11/17 Time Seen by Provider: 15:06 Diagnosis Sepsis Assess & Plan/Chief Complaint The patient reports that she is feeling much better. She is beginning to have an appetite and energy return. She is anxious to leave and appears to be on schedule for the plan and discharged tomorrow. Physical exam: She is bright and alert. Lungs are clear to auscultation. CV is regular without murmur. Abdomen is soft without tenderness. Extremities show no pedal edema. Impression: Urinary tract infection with multi drug resistant Escherichia coli. 2.septicemia secondary to number 1. Plan: If no change in condition she will be discharged in the morning on oral antibiotics. Labs Laboratory Tests 05/10/17 06:00 05/11/17 06:03 SIERRA HOWELL MD May 11, 2017 15:08
[2017-05-11 15:55] VITALS: BP 117/83
[2017-05-11 16:00] VITALS: BP 117/83
[2017-05-11] MEDS: POLYETHYLENE GLYCOL 17 GM (MIRALAX) PACK PO PRN (17:13)
[2017-05-12] VITALS: BP 100/56
[2017-05-12] MEDS: MEROPENEM 500 MG in NS (IVPB) 100 ML IV SCH ×2 (00:11→05:14)
[2017-05-12] MEDS: HYDROcodone/APAP 5 MG/325 MG (LORTAB) TAB PO PRN ×2 (00:15→06:16)
[2017-05-12] MEDS: LACTOBACILLUS Acidoph/Bulgar (LACTINEX/FLORANEX) TAB PO SCH ×2 (05:14→11:45)
[2017-05-12 06:22] LABS: BASOPHILS # (AUTO) 0.1 10^3/uL (0.0-0.1); BASOPHILS % (AUTO) 1 % (0-10); EOSINOPHILS # (AUTO) 0.2 10^3/uL (0.0-0.3); EOSINOPHILS % (AUTO) 3 % (0-10); HEMATOCRIT 36 % (35-52); HEMOGLOBIN 12.1 G/DL (11.5-16.0); LYMPHOCYTES # (AUTO) 1.4 X 10^3 (1.0-4.0); LYMPHOCYTES % (AUTO) 23 % (12-44); MEAN CORPUSCULAR HEMOGLOBIN 30 PG (25-34); MEAN CORPUSCULAR HGB CONC 34 G/DL (32-36); MEAN CORPUSCULAR VOLUME 90 FL (80-99); MEAN PLATELET VOLUME 9.6 FL (7.4-10.4); MONOCYTES # (AUTO) 1.3 X 10^3 (0.0-1.0); MONOCYTES % (AUTO) 21 % (0-12); NEUTROPHILS # (AUTO) 3.3 X 10^3 (1.8-7.8); NEUTROPHILS % (AUTO) 53 % (42-75); PLATELET COUNT 325 10^3/uL (130-400); RED CELL DISTRIBUTION WIDTH 13.8 % (10.0-14.5); WHITE BLOOD COUNT 6.3 10^3/uL (4.3-11.0)
[2017-05-12 06:34] LABS: BUN/CREATININE RATIO 20; CALCIUM 8.6 MG/DL (8.5-10.1); CARBON DIOXIDE 25 MMOL/L (21-32); CHLORIDE 103 MMOL/L (98-107); CREATININE SERUM 0.55 MG/DL (0.60-1.30); GFR ESTIMATED > 60; GLUCOSE 91 MG/DL (70-105); MAGNESIUM 1.7 MG/DL (1.8-2.4); POTASSIUM 3.4 MMOL/L (3.6-5.0); SODIUM 140 MMOL/L (135-145)
--- NOTE | 2017-05-12 07:04 | Pulmonary Progress Note ---
Subjective Time Seen by Provider: 09:07 Subjective/Events-last exam pt is doing much better. Exam Exam Vital Signs Date Time Temp Pulse Resp B/P (MAP) Pulse Ox O2 Delivery O2 Flow Rate FiO2 05/12/17 00:16 Room Air 05/12/17 00:00 98.6 99 17 100/56 (71) 93 Room Air 05/11/17 21:00 Room Air 05/11/17 15:55 98.4 78 20 117/83 (94) 98 Room Air 05/11/17 09:00 Room Air 05/11/17 08:40 95 Room Air 05/11/17 08:00 98.9 71 20 120/76 (91) 96 Nasal Cannula 2.00 I & O 05/12/17 07:00 Intake Total 3450 ml Balance 3450 ml General Appearance: No Apparent Distress, WD/WN HEENT: PERRL/EOMI, Moist Mucous Membranes, No Scleral Icterus (L), No Scleral Icterus (R) Neck: Normal Inspection, Non Tender, Supple, No JVD, No Thyromegaly Respiratory: Lungs Clear, No Respiratory Distress, No Wheezing Cardiovascular: Regular Rate, Rhythm, No Murmur Extremity: Non Tender, No Calf Tenderness, No Pedal Edema Neurologic/Psychiatric: Alert, Oriented x3, Normal Mood/Affect Skin: Normal Color, Warm/Dry Results Lab Laboratory Tests 05/11/17 06:03 05/12/17 06:05 Assessment/Plan Assessment/Plan Sepsis with pylonephritis -Merrem PNA -repeat CXR 8wks after discharge UTI hypokalemia -replace Will have RT do ambulatory desat test. prior to discharge. 232 PALMA REILLY DO May 12, 2017 07:04
[2017-05-12 08:00] VITALS: BP 119/74
[2017-05-12] MEDS: guaiFENesin (MUCINEX) 600 MG TAB PO SCH (08:33)
[2017-05-12] MEDS ORDERED: SULF1TAB35 PO (11:35)
[2017-05-12] MEDS ORDERED: POTA10CA43 PO (11:35)
[2017-05-12] MEDS ORDERED: ACHD5005 PO (11:35)
--- NOTE | 2017-05-12 11:37 | Discharge Summary-Hospitalist ---
Diagnosis/Chief Complaint Date of Admission May 06, 2017 at 18:57 Date of Discharge Discharge Date: May 12, 2017 Admission Diagnosis Sepsis Discharge Diagnosis (1) Sepsis Status: Acute Assessment & Plan: UA consistent with UTI Urine and Blood cultures ordered here but received after antibiotics given at Urgent Care I called and discussed with [facility] who will fax results of cultures when available Urine and blood cultures from here now growing ESBL e coli Continue Merrem Will consult IV team for PICC placement tomorrow Probiotic Leukocytosis trending down, fever curve trending down (2) CAP (community acquired pneumonia) Status: Acute Assessment & Plan: Continue Abx as above Pulm consulted, appreciate recs (3) Bacteremia Status: Acute Assessment & Plan: ESBL e coli growing on blood cultures Merrem as above Will need halfway course with IV abx Will repeat blood cultures tomorrow after initiation of Merrem to ensure clearance before PICC placement Like due to obstructing kidney stone that has now passed (4) Pyelonephritis Assessment & Plan: Not seen on CT but clinically appears to have pyelonephritis (UA consistent with infection, CVA tenderness, sepsis) Continue abx (5) Hypokalemia Status: Resolved Assessment & Plan: resolved (6) Hypomagnesemia Status: Acute Assessment & Plan: Will replace (7) Prophylactic measure Assessment & Plan: Lovenox Reg Diet Saline Lock Discharge Summary Discharge Physical Exam Allergies: Coded Allergies: No Known Drug Allergies (Unverified , 08/30/14) Vitals & I&Os Vital Signs Date Time Temp Pulse Resp B/P (MAP) Pulse Ox O2 Delivery O2 Flow Rate FiO2 05/12/17 09:05 0.00 05/12/17 08:40 93 Room Air 05/12/17 08:00 98.0 119/74 (89) 05/12/17 00:00 99 17 General Appearance: Alert, Oriented X3, Cooperative Respiratory: Clear to Auscultation, Normal Air Movement Cardiovascular: Regular Rate Psych/Mental Status: Mental Status NL Hospital Course Hospital course: Patient had a standard but lengthy hospital course. She was placed on IV fluids and treatment for ESBL UTI with sepsis and she improved but fever continued as expected. We held most of her home medications during her hospital stay area potassium supplement was given and will be given at discharge with close follow-up with primary care provider. She was maintained on DVT prophylaxis throughout the hospital course and felt ready for discharge on 05/12/17. Labs (last 24 hrs) Laboratory Tests 05/12/17 06:05: White Blood Count 6.3, Red Blood Count 4.00L, Hemoglobin 12.1, Hematocrit 36, Mean Corpuscular Volume 90, Mean Corpuscular Hemoglobin 30, Mean Corpuscular Hemoglobin Concent 34, Red Cell Distribution Width 13.8, Platelet Count 325, Mean Platelet Volume 9.6, Neutrophils (%) (Auto) 53, Lymphocytes (%) (Auto) 23, Monocytes (%) (Auto) 21H, Eosinophils (%) (Auto) 3, Basophils (%) (Auto) 1, Neutrophils # (Auto) 3.3, Lymphocytes # (Auto) 1.4, Monocytes # (Auto) 1.3H, Eosinophils # (Auto) 0.2, Basophils # (Auto) 0.1, Sodium Level 140, Potassium Level 3.4L, Chloride Level 103, Carbon Dioxide Level 25, Anion Gap 12, Blood Urea Nitrogen 11, Creatinine 0.55L, Estimat Glomerular Filtration Rate > 60, BUN /Creatinine Ratio 20, Glucose Level 91, Calcium Level 8.6, Magnesium Level 1.7L Microbiology 05/06/17 Blood Culture - Preliminary, Resulted Escherichia coli 05/07/17 Influenza Types A,B Antigen (VINITA) - Final, Complete 05/06/17 Urine Culture - Final, Complete Escherichia coli Patient resulted labs reviewed. Pending Labs Laboratory Tests 05/12/17 06:05: White Blood Count 6.3, Red Blood Count 4.00, Hemoglobin 12.1, Hematocrit 36, Mean Corpuscular Volume 90, Mean Corpuscular Hemoglobin 30, Mean Corpuscular Hemoglobin Concent 34, Red Cell Distribution Width 13.8, Platelet Count 325, Mean Platelet Volume 9.6, Neutrophils (%) (Auto) 53, Lymphocytes (%) (Auto) 23, Monocytes (%) (Auto) 21, Eosinophils (%) (Auto) 3, Basophils (%) (Auto) 1, Neutrophils # (Auto) 3.3, Lymphocytes # (Auto) 1.4, Monocytes # (Auto) 1.3, Eosinophils # (Auto) 0.2, Basophils # (Auto) 0.1, Sodium Level 140, Potassium Level 3.4, Chloride Level 103, Carbon Dioxide Level 25, Anion Gap 12, Blood Urea Nitrogen 11, Creatinine 0.55, Estimat Glomerular Filtration Rate > 60, BUN/ Creatinine Ratio 20, Glucose Level 91, Calcium Level 8.6, Magnesium Level 1.7 Discussion & Recommendations Discharge Planning: <30 minutes discharge planning Discharge Home Medications: Active Scripts Active Potassium Chloride 10 Meq Capsule.er 10 Meq PO DAILY Bactrim Ds Tablet (Sulfamethoxazole/Trimethoprim) 1 Each Tablet 1 Each PO BID Hydrocodone/Acetaminophen 5/325mg Tablet (Acetaminophen/Hydrocodone Bitart) 1 Tab Tab 1 Tab PO Q4H PRN Reported Phentermine HCl 37.5 Mg Tablet 37.5 Mg PO DAILY PRN Fluconazole 100 Mg Tablet 100 Mg PO Q72H Triamterene-Hctz 37.5-25 mg Tb (Triamterene/Hydrochlorothiazid) 1 Each Tablet 1 Tab PO DAILY Klonopin (Clonazepam) 0.5 Mg Tablet 0.5 Mg PO HS PRN Daily Multiple Vitamin (Multivitamin) 1 Each Tablet 1 Tab PO DAILY Advil (Ibuprofen) 200 Mg Tablet 400-800 Mg PO Q8H PRN Metformin HCl ER (Metformin HCl) 500 Mg Tab.er.24h 500 Mg PO DAILY Instructions to patient/family Please see electronic discharge instructions given to patient. Clinical Quality Measures DVT/VTE Risk/Contraindication: Risk Factor Score Per Nursin RFS Level Per Nursing on Admit: 1=Low/No VTE PPX Copy Copies To 1: VIJAY ALVARADO DO Problem Qualifiers (1) Sepsis: Sepsis type: sepsis due to unspecified organism Qualified Codes: A41.9 - Sepsis, unspecified organism (2) CAP (community acquired pneumonia): Laterality: right Lung location: lower lobe of lung Qualified Codes: J18.1 - Lobar pneumonia, unspecified organism KERLINE PARKS DO May 12, 2017 11:37
[2017-05-12 12:46] VITALS: BP 119/74
== END 2017-05-12 12:10 | disposition home or self-care (01) | DRG 871 ==
LOC: ICU 18:57 → 4TH 05-07 11:40
PROVIDERS: ADMIT Family Medicine; ATTEND Family Medicine
DX: A41.51 Sepsis due to Escherichia coli [E. coli] (principal); N12 Tubulo-interstitial nephritis, not specified as acute or chronic; J18.9 Pneumonia, unspecified organism; E87.6 Hypokalemia; E83.42 Hypomagnesemia; Z87.891 Personal history of nicotine dependence; E03.9 Hypothyroidism, unspecified; Z16.12 Extended spectrum beta lactamase (ESBL) resistance
CPT/HCPCS: 36415; 71045; 71046; 74176; 80048; 80053; 81000; 83605; 83690; 83735; 84100; 84132; 85007; 85025; 85027; 87040; 87077; 87088; 87186; 87804; 94640; 94760; 94761

== ENCOUNTER → 2017-06-08 | Outpatient (CLI) | payer BC ==
[~2017-06-08] VITALS: Ht 165.1 cm; Wt 79.5 kg
[~2017-06-08] MED LIST changes: +ACHD5005 PO; +CLON0.5T PO; +FLUC100T6 PO; +IBUP-30 PO; +MAGNESIUM 1 GM/100 ML IVPB 200 ML IV ONE; +MAGNESIUM SULFATE IV ONE; +METF500T8 PO; +MULT-35 PO; +NS IV ONE; +PHEN37.53 PO; +POTA10CA43 PO; +SULF1TAB35 PO; +TRIA1TAB3 PO; -cefTRIAXone 1 GM/NS 50 ML IVPB IV ONE; +cefTRIAXone 2 GM/NS 100 ML IVPB IV ONE
[2017-06-08 13:30] VITALS: BP 137/101
[2017-06-08 13:33] LABS: BILIRUBIN,URINE NEGATIVE (NEGATIVE); CLARITY,URINE CLEAR; COLOR,URINE YELLOW; GLUCOSE, URINE (UA) NEGATIVE (NEGATIVE); KETONES,URINE NEGATIVE (NEGATIVE); LEUKOCYTE ESTERASE ,URINE 3+ (NEGATIVE); NITRITE,URINE NEGATIVE (NEGATIVE); PH,URINE 7 (5-9); PROTEIN,URINE NEGATIVE (NEGATIVE); UROBILINOGEN,URINE NORMAL (NORMAL)
[2017-06-08 13:43] LABS: BACTERIA,URINE MODERATE /HPF; RBC,URINE 0-2 /HPF; WBC,URINE 25-50 /HPF
[2017-06-08 15:00] VITALS: BP 137/101
[2017-06-08 15:00] LABS: BASOPHILS % (AUTO) 1 % (0-10); EOSINOPHILS % (AUTO) 1 % (0-10); HEMATOCRIT 35 % (35-52); HEMOGLOBIN 11.5 G/DL (11.5-16.0); LYMPHOCYTES # (AUTO) 0.9 X 10^3 (1.0-4.0); LYMPHOCYTES % (AUTO) 16 % (12-44); MEAN CORPUSCULAR HEMOGLOBIN 31 PG (25-34); MEAN CORPUSCULAR HGB CONC 33 G/DL (32-36); MEAN CORPUSCULAR VOLUME 93 FL (80-99); MEAN PLATELET VOLUME 9.5 FL (7.4-10.4); MONOCYTES # (AUTO) 0.5 X 10^3 (0.0-1.0); MONOCYTES % (AUTO) 8 % (0-12); NEUTROPHILS # (AUTO) 4.5 X 10^3 (1.8-7.8); NEUTROPHILS % (AUTO) 75 % (42-75); PLATELET COUNT 238 10^3/uL (130-400); RED BLOOD COUNT 3.74 10^6/uL (4.35-5.85); RED CELL DISTRIBUTION WIDTH 14.4 % (10.0-14.5); WHITE BLOOD COUNT 5.9 10^3/uL (4.3-11.0)
[2017-06-08 15:29] LABS: ALANINE AMINOTRANSFERASE 45 U/L (0-55); ALBUMIN 4.1 GM/DL (3.2-4.5); ALKALINE PHOSPHATASE 58 U/L (40-136); BILIRUBIN,TOTAL 0.3 MG/DL (0.1-1.0); BUN/CREATININE RATIO 15; CALCIUM 8.3 MG/DL (8.5-10.1); CARBON DIOXIDE 31 MMOL/L (21-32); CHLORIDE 101 MMOL/L (98-107); CREATININE SERUM 0.55 MG/DL (0.60-1.30); GFR ESTIMATED > 60; GLUCOSE 92 MG/DL (70-105); POTASSIUM 3.5 MMOL/L (3.6-5.0); SODIUM 138 MMOL/L (135-145)
[2017-06-08 17:30] VITALS: BP 137/101
== END | disposition home or self-care (01) ==
LOC: SDC 13:13
PROVIDERS: ATTEND Nurse Practitioner Family
DX: R50.9 Fever, unspecified (principal); R05 Cough; E83.42 Hypomagnesemia
CPT/HCPCS: 36415; 36569; 76937; 80053; 81000; 85025; 87088; 87186; 96365; 96366

== ENCOUNTER 2017-08-11 15:50 | Emergency (ER) | payer BC ==
[~2017-08-11] VITALS: Ht 160 cm; Wt 72.6 kg
[~2017-08-11 15:50] MED LIST changes: -MAGNESIUM 1 GM/100 ML IVPB 200 ML IV ONE; -MAGNESIUM SULFATE IV ONE; -NS IV ONE; -cefTRIAXone 2 GM/NS 100 ML IVPB IV ONE
[2017-08-11] MEDS ORDERED: LEVO75TA PO (16:11)
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
[2017-08-11] MEDS ORDERED: TETANUS,DIPTH,PERTUSS P/F (BOOSTRIX) 0.5 ML VIAL IM ONE (16:30)
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
[2017-08-11] MEDS ORDERED: MUPI15CR TP (18:09)
[2017-08-11] MEDS ORDERED: METH500T PO (18:09)
[2017-08-11] MEDS ORDERED: TRAM-42 PO (18:09)
[2017-08-11] MEDS ORDERED: METH4TAB PO (18:09)
[2017-08-11 18:31] VITALS: BP 129/99
== END 2017-08-11 18:31 | disposition home or self-care (01) ==
LOC: EDUNIT# 15:50 → ER 15:52
DX: S16.1XXA Strain of muscle, fascia and tendon at neck level, initial encounter (principal); S29.012A Strain of muscle and tendon of back wall of thorax, initial encounter; S50.12XA Contusion of left forearm, initial encounter; M50.30 Other cervical disc degeneration, unspecified cervical region; E03.9 Hypothyroidism, unspecified; R07.89 Other chest pain; R40.2142 Coma scale, eyes open, spontaneous, at arrival to emergency department; R40.2252 Coma scale, best verbal response, oriented, at arrival to emergency department; R40.2362 Coma scale, best motor response, obeys commands, at arrival to emergency department; Z23 Encounter for immunization; V43.92XA Unspecified car occupant injured in collision with other type car in traffic accident, initial encounter
CPT/HCPCS: 70450; 71045; 71250; 72125; 72128; 72131; 72141; 74176; 90471; 90715; 99282

== ENCOUNTER 2022-07-07 10:28 | Emergency (ER) | payer BC ==
[~2022-07-07] VITALS: Ht 165 cm; Wt 102.0 kg
[~2022-07-07 10:28] MED LIST changes: +FLUC100T10 PO; -FLUC100T6 PO; +LEVO75TA PO; +METF-865 PO; -METF500T8 PO; +METH4TAB PO; +METH500T PO; +MUPI15CR TP; -PHEN37.53 PO; +PHEN37.58 PO; -POTA10CA43 PO; +POTA10CA44 PO; -SULF1TAB35 PO; +SULF1TAB38 PO; +TRAM-42 PO
--- NOTE | 2022-07-07 10:44 | ED General ---
General Stated Complaint: HBP | HEADACHES | NAUSEA Source of Information: Patient Exam Limitations: No Limitations History of Present Illness Date Seen by Provider: July 07, 2022 Time Seen by Provider: 10:42 Initial Comments Patient is a 37-year-old female who presents to the emergency room with a chief complaint of elevated blood pressures, generalized headache, nausea. Patient has had hypertension since her first episode of COVID a couple of years ago. She states she has had COVID 3 times and every time she has COVID they have to increase her blood pressure medications. She saw Dr. Abbott within the last month or so and had her clonidine dosing adjusted. She states over the last few days she has had this headache that is worse when she gets up and moves around. She denies vision problems, speech difficulty. No unilateral weakness numbness or tingling. No chest pain. No shortness of breath. She has had mild nausea with a headache. No problems with bowel or bladder. No swelling in her legs. She took 600 mg of ibuprofen today. Rates the headache a "4 or 5" currently. She states last night her blood pressure was up into the 170s, 180s systolic. Currently 140s over 120. She works as a nurse in recovery. She is not aware of any sick contacts. Timing/Duration: 2-3 Days Severity: Moderate Associated Systoms: Headaches, Nausea/Vomiting (Nausea without vomiting) Allergies and Home Medications Allergies Coded Allergies: No Known Drug Allergies (Unverified , 08/30/14) Patient Home Medication List Home Medication List Reviewed: Yes Levothyroxine Sodium (Synthroid) 75 Mcg Tablet, 75 MCG PO DAILY, (Reported) Entered as Reported by: ALMA ZARAGOZA on 08/11/17 1611 Methocarbamol (Robaxin) 500 Mg Tablet, 500 MG PO QID Prescribed by: BANG RASMUSSEN on 08/11/171808 Methylprednisolone (Medrol) 4 Mg Tab.ds.pk, 4 MG PO UD Prescribed by: BANG RASMUSSEN on 08/11/171808 Mupirocin Calcium (Bactroban) 15 Gm Cream..g., 15 GM TP BID Prescribed by: BANG RASMUSSEN on 08/11/171808 Tramadol HCl (Ultram) 50 Mg Tablet, 50 MG PO Q4H Prescribed by: BANG RASMUSSEN on 08/11/171808 Review of Systems Review of Systems Constitutional: see HPI EENTM: no symptoms reported Respiratory: no symptoms reported Cardiovascular: no symptoms reported Gastrointestinal: nausea Genitourinary: no symptoms reported : No Musculoskeletal: no symptoms reported Skin: no symptoms reported Psychiatric/Neurological: Headache Past [id number] Hx Immunizations Up To Date PED Vaccines UTD: No Seasonal Allergies Seasonal Allergies: Yes Past Medical History Surgeries: Yes Breast Respiratory: No Cardiac: No Neurological: Yes Reproductive Disorders: No Genitourinary: Yes Kidney Infection, Bladder Infection Gastrointestinal: No Musculoskeletal: Yes Endocrine: Yes (CALIXTO'S) Hypothyroidsim HEENT: No Cancer: No Psychosocial: No Integumentary: No Blood Disorders: Yes (LYME DZ) Family Medical History GERD G8 SISTER, Onset:Unknown Hypertension 19 FATHER, Onset:Unknown Hypertension Physical Exam Vital Signs Vital Signs - First Documented 07/07/22 10:35 Temp 36.0 Pulse 79 Resp 16 B/P (MAP) 147/119 (128) Pulse Ox 98 O2 Delivery Room Air Capillary Refill : Height, Weight, BMI Height: 5'3.00" Weight: 160lbs. 4.0oz. 72.809504ig; 28.7 BMI Method:Stated General Appearance: No Apparent Distress, WD/WN Eyes: Bilateral Eye Normal Inspection, Bilateral Eye PERRL, Bilateral Eye EOMI HEENT: PERRL/EOMI, Pharynx Normal Neck: Normal Inspection Respiratory: Lungs Clear, Normal Breath Sounds, No Accessory Muscle Use, No Respiratory Distress Cardiovascular: Regular Rate, Rhythm, Normal Peripheral Pulses Gastrointestinal: Non Tender, Soft Extremity: Normal Capillary Refill, Normal Inspection, Normal Range of Motion, Non Tender, No Pedal Edema Neurologic/Psychiatric: Alert, Oriented x3, No Motor/Sensory Deficits, Normal Mood/Affect, improvement engineer II-XII Norm as Tested Skin: Normal Color, Warm/Dry Progress/Results/Core Measures Suspected Sepsis SIRS Temperature: Pulse: Respiratory Rate: Laboratory Tests 07/07/22 10:42: White Blood Count 3.6L Blood Pressure / Mean: Laboratory Tests 07/07/22 10:42: Creatinine 0.72, Platelet Count 255 Results/Orders Lab Results Laboratory Tests Test 07/07/22 10:42 Range/Units White Blood Count 3.6 L 4.3-11.0 10^3/uL Red Blood Count 4.19 3.80-5.11 10^6/uL Hemoglobin 12.8 11.5-16.0 g/dL Hematocrit 37 35-52 % Mean Corpuscular Volume 89 80-99 fL Mean Corpuscular Hemoglobin 31 25-34 pg Mean Corpuscular Hemoglobin Concent 34 32-36 g/dL Red Cell Distribution Width 16.1 H 10.0-14.5 % Platelet Count 255 130-400 10^3/uL Mean Platelet Volume 9.9 9.0-12.2 fL Immature Granulocyte % (Auto) 1 % Neutrophils (%) (Auto) 53 42-75 % Lymphocytes (%) (Auto) 34 12-44 % Monocytes (%) (Auto) 8 0-12 % Eosinophils (%) (Auto) 3 0-10 % Basophils (%) (Auto) 1 0-10 % Neutrophils # (Auto) 1.9 1.8-7.8 10^3/uL Lymphocytes # (Auto) 1.2 1.0-4.0 10^3/uL Monocytes # (Auto) 0.3 0.0-1.0 10^3/uL Eosinophils # (Auto) 0.1 0.0-0.3 10^3/uL Basophils # (Auto) 0.0 0.0-0.1 10^3/uL Immature Granulocyte # (Auto) 0.0 0.0-0.1 10^3/uL Sodium Level 142 135-145 MMOL/L Potassium Level 3.6 3.6-5.0 MMOL/L Chloride Level 106 98-107 MMOL/L Carbon Dioxide Level 26 21-32 MMOL/L Anion Gap 10 5-14 MMOL/L Blood Urea Nitrogen 13 7-18 MG/DL Creatinine 0.72 0.60-1.30 MG/DL Estimat Glomerular Filtration Rate 110 BUN/Creatinine Ratio 18 Glucose Level 117 H 70-105 MG/DL Calcium Level 8.2 L 8.5-10.1 MG/DL My Orders Orders - YASMEEN CASE MD Ed Iv/Invasive Line Start (07/07/22 10:54) Cbc With Automated Diff (07/07/22 10:54) Basic Metabolic Panel (07/07/22 10:54) Ketorolac Injection (Toradol Injection) (07/07/22 11:00) Metoclopramide Injection (Reglan Injecti (07/07/22 11:00) Diphenhydramine Injection (Benadryl Inje (07/07/22 11:00) Medications Given in ED Current Medications Medications Dose Ordered Sig/Moi Route Start Time Stop Time Status Last Admin Dose Admin Diphenhydramine HCl 25 mg ONCE ONCE IVP 07/07/22 11:00 07/07/22 11:01 DC 07/07/22 11:13 25 MG Ketorolac Tromethamine 15 mg ONCE ONCE IVP 07/07/22 11:00 07/07/22 11:01 DC 07/07/22 11:13 15 MG Metoclopramide HCl 5 mg ONCE ONCE IVP 07/07/22 11:00 07/07/22 11:01 DC 07/07/22 11:12 5 MG Vital Signs/I&O 07/07/22 10:35 Temp 36.0 Pulse 79 Resp 16 B/P (MAP) 147/119 (128) Pulse Ox 98 O2 Delivery Room Air Capillary Refill : Progress Note : Time: 12:12 Progress Note Patient seen and evaluated by me. Evaluation today includes physical exam, CBC, basic metabolic panel. Pertinent physical exam findings well-developed well- nourished 37-year-old female in no acute distress. Heart is regular, lungs are clear her abdomen is soft. No focal neurologic deficits on neuro testing. No lower extremity edema. No rashes, joint pain or swelling. Vital signs, quite hypertensive with a blood pressure of 113 diastolic. Not tachycardic, not hypoxic. Differential diagnosis based on history and physical exam, hypertensive emergency versus urgency. Labs evaluated by me, CBC is normal, chemistry is normal. Patient is treated in the emergency department with Toradol, Reglan and Benadryl. She is reevaluated at this time and states that she is starting to feel much better. Her blood pressure has come down to 99 diastolic. She is comfortable with discharge to home. It is time for her to have one of her clonidine tablets, we will give her 1 of those prior to dismissal. Dr. Abbott's office has contacted her for a follow-up appointment post ER visit. She has no clinical or objective findings concerning for hypertensive emergency, endorgan damage. No concerning findings for acute pulmonary edema, stroke, ACS or renal failure. Both verbal and written discharge instructions and return precautions are provided to the patient. She verbalized understanding. All questions are sought and answered. Departure Impression Primary Impression: Hypertensive urgency Additional Impression: Headache Qualified Codes: R51.9 - Headache, unspecified Disposition: 01 HOME, SELF-CARE Condition: Improved Departure-Patient Inst. Decision time for Depature: 12:14 Referrals: VIJAY ALVARADO DO (PCP) Primary Care Physician MAXIMILIAN ALVARADO, YOBANI (Family) Primary Care Physician Patient Instructions: Headache, Adult ED, High Blood Pressure ED Add. Discharge Instructions: Continue your daily medications as prescribed. Please follow-up with Dr. Abbott's office this week. If you develop worsening headache with vision changes, speech difficulty, unilateral weakness or numbness please return to the emergency department for reevaluation. Work/School Note: Work Release Form Date Seen in the Emergency Department: July 07, 2022 Return to Work: July 08, 2022 Copy Copies To 1: VIJAY ALVARADO DO Copies To 2: FLAVIO ABBOTT MD, KATHRYN M MD July 07, 2022 10:44
[2022-07-07 10:59] LABS: BASOPHILS % (AUTO) 1 % (0-10); EOSINOPHILS # (AUTO) 0.1 10^3/uL (0.0-0.3); EOSINOPHILS % (AUTO) 3 % (0-10); HEMATOCRIT 37 % (35-52); HEMOGLOBIN 12.8 g/dL (11.5-16.0); LYMPHOCYTES # (AUTO) 1.2 10^3/uL (1.0-4.0); LYMPHOCYTES % (AUTO) 34 % (12-44); MEAN CORPUSCULAR HEMOGLOBIN 31 pg (25-34); MEAN CORPUSCULAR HGB CONC 34 g/dL (32-36); MEAN CORPUSCULAR VOLUME 89 fL (80-99); MEAN PLATELET VOLUME 9.9 fL (9.0-12.2); MONOCYTES # (AUTO) 0.3 10^3/uL (0.0-1.0); MONOCYTES % (AUTO) 8 % (0-12); NEUTROPHILS # (AUTO) 1.9 10^3/uL (1.8-7.8); NEUTROPHILS % (AUTO) 53 % (42-75); PLATELET COUNT 255 10^3/uL (130-400); WHITE BLOOD COUNT 3.6 10^3/uL (4.3-11.0)
[2022-07-07] MEDS ORDERED: METOCLOPRAMIDE INJ 10 MG/2 ML (REGLAN) IVP ONE (11:00)
[2022-07-07] MEDS ORDERED: KETOROLAC 15 MG/ML VIAL IVP ONE (11:00)
[2022-07-07] MEDS ORDERED: diphenhydrAMINE 50 MG/ML INJ (BENADRYL) IVP ONE (11:00)
[2022-07-07 11:17] LABS: CALCIUM 8.2 MG/DL (8.5-10.1); CREATININE SERUM 0.72 MG/DL (0.60-1.30); POTASSIUM 3.6 MMOL/L (3.6-5.0)
[2022-07-07 12:52] VITALS: BP 129/100
== END 2022-07-07 12:55 | disposition home or self-care (01) ==
LOC: EDUNIT# 10:28 → ER 10:30
DX: I16.0 Hypertensive urgency (principal); Z86.16 Personal history of COVID-19
CPT/HCPCS: 36415; 80048; 85025